=== PATIENT | female | born 1990 | race Hispanic/Latino ===

== ENCOUNTER 2021-04-25 16:48 | Emergency (ER) | payer OTHER ==
[~2021-04-25] VITALS: Ht 170.2 cm; Wt 89.1 kg
[2021-04-25] MEDS ORDERED: NUVAMIS2 PV (16:54)
[2021-04-25] MEDS ORDERED: LORA-622 PO (16:54)
[2021-04-25 18:59] LABS: HEMATOCRIT 39.5 % (36.0-47.0); HEMOGLOBIN 12.8 g/dl (12.0-15.5); MEAN CORPUSCULAR HEMOGLOBIN 30.1 pg (27.0-33.0); MEAN CORPUSCULAR HGB CONC 32.4 g/dl (32.0-36.5); MEAN CORPUSCULAR VOLUME 92.9 fl (80.0-96.0); PLATELET COUNT, AUTOMATED 271 10^3/uL (150-450); RED BLOOD COUNT 4.25 10^6/uL (4.00-5.40); WHITE BLOOD COUNT 7.5 10^3/uL (4.0-10.0)
--- NOTE | 2021-04-25 21:33 | REPVR ---
PROCEDURE INFORMATION: Exam: US First Trimester, Transabdominal Exam date and time: 04/25/2021 8:05 PM Age: 30 years old Clinical indication: Lmp or gestational age (in weeks): 5 w 5 d; Antepartum complications; Bleeding; ; Additional info: Bleeding 6 weeks TECHNIQUE: Imaging protocol: Real-time transabdominal obstetrical ultrasound of the maternal pelvis and a first trimester , less than 14 weeks 0 days, with image documentation. COMPARISON: No relevant prior studies available. FINDINGS: Gestation: Mean gestational sac measures 11 mm corresponding to 5 weeks and 5 days gestation. pole not visualized. Yolk sac not visualized. Bilateral ovaries not visualized due to overlying bowel gas. Uterus: Uterus measures 10.1 x 6.2 x 7.0 cm. space: No intraperitoneal free fluid. IMPRESSION: Limited study. Intrauterine gestation sac corresponding to 5 weeks and 5 days gestation. No pole or yolk sac identified. Findings may be secondary to early gestation versus nonviable . Continued follow-up is suggested. Electronically signed by: Lionel Harrison On 04/25/2021 21:32:57 PM
[2021-04-25 22:20] VITALS: BP 124/70
== END 2021-04-25 22:26 | disposition home or self-care (01) ==
LOC: M ED 16:48
DX: O46.91 Antepartum hemorrhage, unspecified, first trimester (principal); Z88.6 Allergy status to analgesic agent; Z88.8 Allergy status to other drugs, medicaments and biological substances; Z91.040 Latex allergy status; Z3A.01 Less than 8 weeks gestation of pregnancy

== ENCOUNTER 2021-05-12 06:38 | Emergency (ER) | payer OTHER ==
[~2021-05-12] VITALS: Ht 170.2 cm; Wt 87.7 kg
[~2021-05-12 06:38] MED LIST: LORA-622 PO; NUVAMIS2 PV
[2021-05-12] MEDS ORDERED: METOCLOPRAMIDE INJ 10MG/2ML VIAL (J2765 PER 1) IV ONE (08:30)
[2021-05-12] MEDS ORDERED: ACETAMINOPHEN 325 MG TAB PO ONE (08:30)
[2021-05-12] MEDS ORDERED: NS 1,000 ML IV ONE (08:30)
--- NOTE | 2021-05-12 09:02 | REP ---
INDICATION: bleeding. COMPARISON: Comparison sonography 25 April 2021. TECHNIQUE: Transabdominal obstetric sonography. FINDINGS: Scanning demonstrates a single living intrauterine gestation in a free-floating lie. The crown-rump length of the embryonic pole is 2.0 cm. This corresponds with a gestational age estimate of a yolk sac is visualized. No complication is seen. No extra uterine abnormality. 8 weeks 4 days. heart rate is recorded at 167 beats per minute. IMPRESSION: Single living intrauterine gestation at 8 weeks 4 days by today's crown-rump length. WARREN by today's sonography December 18, 2021. No complication seen. <Electronically signed by Fernando Gee > 05/12/21 0870
[2021-05-12 09:14] LABS: BASO % 0.2 % (0.0-1.0); EOS # 0.1 10^3/uL (0.0-0.5); EOS % 2.4 % (0.0-3.0); HEMATOCRIT 37.9 % (36.0-47.0); HEMOGLOBIN 12.3 g/dl (12.0-15.5); LYMPH % 35.6 % (24.0-44.0); MEAN CORPUSCULAR HEMOGLOBIN 29.9 pg (27.0-33.0); MEAN CORPUSCULAR HGB CONC 32.5 g/dl (32.0-36.5); MONO # 0.3 10^3/uL (0.0-0.8); MONO % 4.7 % (2.0-8.0); NEUTROPHILS # 3.3 10^3/uL (1.5-8.5); NEUTROPHILS % 56.9 % (36.0-66.0); PLATELET COUNT, AUTOMATED 253 10^3/uL (150-450); RED BLOOD COUNT 4.12 10^6/uL (4.00-5.40); WHITE BLOOD COUNT 5.7 10^3/uL (4.0-10.0)
--- OUTSIDE RECORDS SUMMARY | 2021-05-12 10:01 | CCD | Continuity of Care Document ---
Author Author Cortney ENGLE M.D. Organization Unknown Address [address], [place] [address] Phone [phone] Care Team Providers Care Staff Physician Name Role Phone Edwar Tatum MD [facility] [phone] Problems Active Problems Provider Date Cow's milk protein-induced anaphylaxis Rylan Engle M.D. 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 Onset: 03/27/2021 Anaphylaxis due to shellfish Rylan Engle M.D. Onset : 03/27/2021 Social History Type Date Description Comments Sex Unknown Tobacco Use Reviewed: 03/27/21 Patient has never smoked Smoking Status Reviewed: 03/27/21 Patient has never smoked Allergies and adverse reactions Active Allergies Criticality Reaction | Severity Comments Date Latex Unable to assess criticality Difficulty breathing, Difficulty swallowing, Hives, Itching 03/27/2021 NSAIDS Unable to assess criticality Difficulty breathing, Difficulty swallowing, Hives 03/27/2021 Medications Active Medications SIG Qnty Indications Ordering Provide r Date Diphenhydramine HCL 25mg Tablets take 1-2 tablets (25-50 mg) by oral route every 4-6 hours as needed Unknown Nuvaring 0.12-0.015mg/24HR Ring Insert ring every 4 weeks Unknown Epinephrine 0.3mg/0. 3ML Solution Auto-Inject inject intramuscularly once as needed for anaphylaxis Unknown Immunizations Description No Information Available Vital Signs Date Vital Result Comment 03/27/2021 8:29am Weight 202.50 lb Height 66.75 inches 5'6.75" Heart Rate 73 /min Respiratory Rate 16 /min BP Systolic 128 mmHg BP Diastolic 87 mmHg BMI (Body Mass Index) 32.0 kg/m2 Results Description No Information Available Procedures Date Code Description Status 03/27/2021 39241 Office/Outpatient New Moderate M DM 45-59 Minutes Completed 03/27/2021 95805 Allergy Testing Any Combination Of Percutaneous W/Drugs Completed 03/27/2021 10000 Allergy Tests Percutaneous W/ Al lergenic Extracts Completed Medical Devices Description No Information Available Encounters Type Date Location Provider Dx Diagnosis Office Visit 03/27/2021 8:30a Main Office Rylan Engle M.D. T78.3xxA Angioneurotic edema, initial encounter L50.9 Urticaria, unspecified T50.Z95A Adverse effect of vaccines a nd biological substances, init T78.07xA Anaphylactic reaction due to milk and dairy products, init T78.02xA Anaphylactic reaction due to shellfish (crustaceans), init T78.05xA Anaphylactic reaction due to tree nuts and seeds, init Assessments Date Code Description Provider 03/27/2021 T78.3xxA Angioneurotic edema, initial enc ounter Rylan Engle M.D. 03/27/2021 L50.9 Urticaria, unspecified Rylan leonard M.D. 03/27/2021 T50.Z95A Adverse effect of ot her vaccines and biological substances, initial encounter Rylan Engle M.D. 03/27/2021 T78.07xA Anaphylactic reactio n due to milk and dairy products, initial encounter Rylan Engle M.D. 03/27/2021 T78.02xA Anaphylactic reactio n due to shellfish (crustaceans), initial encounter Rylan Engle M.D. 03/27/2021 T78.05xA Anaphylactic reactio n due to tree nuts and seeds, initial encounter Rylan Engle M.D. Plan of Treatment 03/27/2021 - Rylan Engle M.D.* T78.3xxA Angioneurotic edema, initial encounter* Recommendations:* Skin test to PEG showed weak 2+ positive suggesting that her reactivity to Moderna vaccine could be related to PEG. As a result she should avoid exposure to Moderna vaccine, Pfizer vaccine or [place] vaccine (polysorbate-80 in [place] vaccine is closely cross-reactive with PEG). Because of the severity of her prior reaction I would suggest that this patient is not going to receive all mRNA COVID-19 vaccines. * L50.9 Urticaria, unspecified* Recommendations:* Skin test to PEG showed weak 2+ positive suggesting that her reactivity to Moderna vaccine could be related to PEG. As a result she should avoid exposure to Moderna vaccine, Pfizer vaccine or [place] vaccine (polysorbate-80 in [place] vaccine is closely cross- reactive with PEG). Because of the severity of her prior reaction I would suggest that this patient is not going to receive all mRNA COVID-19 vaccines. * T50.Z95A Adverse effect of other vaccines and biological substances, initial encounter* Recommendations:* Skin test to PEG showed weak 2+ positive suggesting that her reactivity to Moderna vaccine could be related to PEG. As a result she should avoid exposure to Moderna vaccine, Pfizer vaccine or [place] vaccine (polysorbate-80 in [place] vaccine is closely cross-reactive with PEG). Because of the severity of her prior reaction I would suggest that this patient is not going to receive all mRNA COVID-19 vaccines. * T78.07xA Anaphylactic reaction due to milk and dairy products, initial encounter* Recommendations:* Positive skin test suggests that this patient is still allergic to cow's milk/diary and that she would likely react with exposure to diary. Strict avoidance of all diary products is therefore necessary. I explained that it is imperative to read labels and cross check all foods in order to prevent reaction because of cross contamination. She should also keep EpiPen on hand at all times in case of accidental exposure and reaction. * T78.02xA Anaphylactic reaction due to shellfish (crustaceans), initial encounter* Recommendations:* Should avoid exposure to shellfish for the time being. If she ever decides to eat shellfish again I would need to cross check negative skin test with IgE RAST test to shellfish. Assuming that IgE RAST reconfirms negative skin test I would suggest to bring Ms. Lara back for oral challenge with shellfish at that time. Till that time she should avoid exposure to all shellfish and should keep EpiPen on hand at all times. * T78.05xA Anaphylactic reaction due to tree nuts and seeds, initial encounter* Recommendations:* Should avoid exposure to coconut for the time being. If she ever decides to eat coconut again I would need to cross check negative skin test with IgE RAST test to coconut. Assuming that IgE RAST reconfirms negative skin test I would suggest to bring Ms. Lara back for oral challenge with coconut at that time. Till that time she should avoid exposure to coconut. * All * Comments:* Of note, Mrs. Lara develop severe cough and nausea within 5 to 10 minutes after skin test was initiated. Cough and nausea resolved within 10 to 15 minutes after we explained to her that skin test was not not likely responsible. At that time I suggested that she should relax and try "not to talk herself into reaction". I explained that at times stress can be triggering some of the symptoms. When cough and nausea was already resolved we still gave her 1 tablet of Zyrtec to suppress "itching" (no objective rash, hives or swelling seen). She was discharged home 30 minutes after testing without any symptoms. At the time of the discharge she was still hoarse (same hoarseness as she presented to the clinic before testing was commenced). She reportedly developed that hoarseness few days back after having a republican with friends and excessive talking.Time spent:Rev iewing notes and labs from patient's PCP: 10 minutesFace to face discussion: 35 minutesDocumenting the visit: 10 minutes * Follow up:* As needed. Functional Status Description No Information Available Mental Status Description No Information Available Referrals Refer to Reason for Referral Status Appt Date Created
--- OUTSIDE RECORDS SUMMARY | 2021-05-12 10:01 | CCD | Continuity of Care Document ---
Author Author Cortney ENGLE M.D. Organization Unknown Address [address], [address], [place] [address] Phone [phone] Care Team Providers Care Sociology Adjunct Instructor Name Role Phone Edwar Tatum MD [facility] [phone] Problems Active Problems Provider Date Cow's milk [...] Available Procedures Date Code Description Status 03/27/2021 28998 Office/Outpatient New Moderate M DM 45-59 Minutes Completed 03/27/2021 47248 Allergy Testing Any Combination Of Percutaneous W/Drugs Completed 03/27/2021 60969 Allergy Tests Percutaneous W/ Al lergenic Extracts [...] exposure to Moderna vaccine, Pfizer vaccine or [place] vaccine (polysorbate-80 in [place] vaccine is closely [...] Pfizer vaccine or [place] vaccine (polysorbate-80 in [place] vaccine is closely cross- reactive with PEG). [...] Pfizer vaccine or [place] vaccine (polysorbate-80 in [place] vaccine is closely cross-reactive with PEG). Because [...] hoarseness few days back after having a green party with friends and excessive talking.Time spent:Rev iewing notes and labs from patient's PCP: 10 minutesFace to face discussion: 35 minutesDocumenting the visit: 10 minutes * Follow up:* As needed. Functional Status Description No Information Available Mental Status Description No Information Available Referrals Refer to Reason for Referral Status Appt Date Created
--- OUTSIDE RECORDS SUMMARY | 2021-05-12 10:02 | CCD ---
Author Author [facility] Organization [facility] Address Unknown Phone Unavailable Care Team Providers Care Shuttle Van Driver Name Role Phone Melvin FARMER Unavailable Unavailable DARIAN J VERO Unavailable Unavailable DARIAN J VERO Unavailable Unavailable DARIAN J VERO Unavailable Unavailable DARIAN J VERO Unavailable Unavailable DARIAN J VERO Unavailable Unavailable ISAUROKA J VERO Unavailable Unavailable DARIAN J VERO Unavailable Unavailable DARIAN J VERO Unavailable Unavailable DARIAN J VERO Unavailable Unavailable DARIAN J VERO Unavailable Unavailable DARIAN J VERO Unavailable Unavailable Jose Isaac MD Unavailable Unavailable Jose Isaac MD Unavailable Unavailable Jose Isaac MD Unavailable Unavailable Jose Isaac MD Unavailable Unavailable Jose Isaac MD Unavailable Unavailable Jose Isaac MD Unavailable Unavailable JUNG ENGLE MD Unavailable Unavailable JUNG ENGLE MD Unavailable Unavailable JUNG ENGLE MD Unavailable Unavailable JUNG ENGLE MD Unavailable Unavailable JUNG ENGLE MD Unavailable Unavailable JUNG ENGLE MD Unavailable Unavailable JUNG ENGLE MD Unavailable Unavailable JUNG ENGLE MD Unavailable Unavailable JUNG ENGLE MD Unavailable Unavailable JUNG ENGLE MD Unavailable Unavailable JUNG ENGLE MD Unavailable Unavailable JUNG ENGLE MD Unavailable Unavailable JUNG ENGLE MD Unavailable Unavailable JUNG ENGLE MD Unavailable Unavailable JUNG ENGLE MD Unavailable Unavailable JUNG ENGLE MD Unavailable Unavailable JUNG ENGLE MD Unavailable Unavailable JUNG ENGLE MD Unavailable Unavailable CHROSTOWSKI, JUNG MD Unavailable Unavailable CHROSTOWSKI, JUNG MD Unavailable Unavailable CHROSTOWSKI, JUNG MD Unavailable Unavailable CHROSTOWSKI, JUNG MD Unavailable Unavailable CHROSTOWSKI, JUNG MD Unavailable Unavailable CHROSTOWSKI, JUNG MD Unavailable Unavailable CHROSTOWSKI, JUNG MD Unavailable Unavailable CHROSTOWSKI, JUNG MD Unavailable Unavailable CHROSTOWSKI, JUNG MD Unavailable Unavailable CHROSTOWSKI, JUNG MD Unavailable Unavailable CHROSTOWSKI, JUNG MD Unavailable Unavailable CHROSTOWSKI, JUNG MD Unavailable Unavailable CHROSTOWSKI, JUNG MD Unavailable Unavailable CHROSTOWSKI, JUNG MD Unavailable Unavailable CHROSTOWSKI, JUNG MD Unavailable Unavailable CHROSTOWSKI, JUNG MD Unavailable Unavailable CHROSTOWSKI, JUNG MD Unavailable Unavailable CHROSTOWSKI, JUNG MD Unavailable Unavailable CHROSTOWSKI, JUNG MD Unavailable Unavailable CHROSTOWSKI, JUNG MD Unavailable Unavailable CHROSTOWSKI, JUNG MD Unavailable Unavailable [facility] Unavailable Unavailable Re-disclosure Warning The records that you are about to access may contain information from federally-assisted alcohol or drug abuse programs. If such information is present, then the following federally mandated warning applies: This information has been disclosed to you from records protected by federal confidentiality rules (42 CFR part 2). The federal rules prohibit you from making any further disclosure of this information unless further disclosure is expressly permitted by the written consent of the person to whom it pertains or as otherwise permitted by 42 CFR part 2. A general authorization for the release of medical or other information is NOT sufficient for this purpose. The Federal rules restrict any use of the information to criminally investigate or prosecute any alcohol or drug abuse patient.The records that you are about to access may contain highly sensitive health information, the redisclosure of which is protected by Article 27-F of the [facility] Public Health law. If you continue you may have access to information: Regarding HIV / AIDS; Provided by facilities licensed or operated by the [facility] Office of Mental Health; or Provided by the [facility] Office for People With Developmental Disabilities. If such information is present, then the following [facility] mandated warning applies: This information has been disclosed to you from confidential records which are protected by state law. State law prohibits you from making any further disclosure of this information without the specific written consent of the person to whom it pertains, or as otherwise permitted by law. Any unauthorized further disclosure in violation of state law may result in a fine or detention sentence or both. A general authorization for the release of medical or other information is NOT sufficient authorization for further disc losure. Encounters Encounter Providers Location Date Indications Data Source(s ) Emergency Attender: Jose Isaac MDConsultant: [facility] 04/22/2021 09:19:00 AM [facility] - 04/22/2021 11:41:00 AM [facility] ital Patient admitted. Outpatient Attender: VERO FARMERConsultant: [facility] 04/20/2021 03:01:59 PM [facility] Outpatient Attender: JUNG ENGLE MD Main Office 03/27/2021 08:30:00 AM EDT [facility] ([facility]) Medications No Information Insurance Providers Payer name Policy type / Coverage type Policy ID Covered green party ID Covered green party's relationship to aguayo Policy Aguayo Plan Information [facility] ACTIVE DUTY [id number] SP [id number] [facility] HUMANA - O/P [id number] 18 [id number] Problems, Conditions, and Diagnoses Code Display Name Description Problem Type Effective Dates Data Source(s) Z3A01 Less than 8 weeks gestation of Less than 8 weeks gestation of Diagnosis 04/22/2021 09:19:00 AM [facility] O200 Threatened Threatened Diagnosis 1 06/22/2020 09:19:00 AM [facility] O209 Hemorrhage in early , unspecifi ed Hemorrhage in early , unspecified Diagnosis 04/22/2021 09:19:00 AM [facility] 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 Anaphylaxis due to shellf andrei Problem 03/27/2021 12:00:00 AM EDT [facility] ([facility] ) 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 Anaphylaxis due to tree nu t Problem 03/27/2021 12:00:00 AM EDT [facility] ([facility] ) 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 ow's milk protein-induced anaphylaxis Problem 03/27/2021 12:00:00 AM EDT [facility] ([facility] Surgeries/Procedures Procedure Description Date Indications Data Source(s) PERCUTANEOUS TESTS W/ALLERGENIC EXTRACTS 03/27/2021 12 :00:00 AM EDT [facility] Allergy Testing Any Combination Of Percutaneous W/Drugs 03/27/2021 12:00:00 AM EDT [facility] ([facility]) OFFICE OUTPATIENT NEW 45 MINUTES 03/27/2021 12:00:00 A M EDT [facility] ([facility]) Results ID Date Data Source [id number] 04/24/2021 03:34:00 [place] [address] PHONE: [phone] FAX: [phone] Name .................. : TABITHA SWEENEY Acct Number.................. : [id number] ROOM. ................. : TR-04 MR Number ................... : [id number] Stay type ............. : E/R Discharge Date......... ... : 04/22/21 Admit Date ....... .. : 04/22/21 Admit Phys .................... : BELKIS Gale Date of ....... : 1990 Family Phys ................... : UNKNOWN Phone .................. : [phone] Age ................................ : 30 Film# .................. .:[id number] Sex ................................. : F Unsigned transcriptions are preliminary reports and do not represent a medical or legal document US OB 1ST TRI W TV IF NEEDED [id number] COMPLETE:04/22/21 10:58 KNB 17779 Reason(s): [place] 97477 COMPLETE:04/22/21 10:58 KNB 49133 Reason for Exam: Bleeding ULTRASOUND PELVIS INDICATION: patient with bleeding COMPARISON: None TECHNIQUE: Ultrasound of the pelvis is performed using initial transabdominal survey with inconclusive appearance followed by transvaginal technique. Preliminary report for this exam was provided by Jaelyn . FINDINGS: Uterus: Size 11.2 x 6.9 x 5.8 cm. Elongated intrauterine fluid 14 x 14 x 3 mm. Adjacent to this there is a rounded structure with an appearance more suggestive of gestational sac but with no confirmed pole or yolk sac measuring 5 mm. This would correspond to a 4 week 3 day based on size. Right ovary: 3.7 x 3.5 x 1.8 cm. No ovarian or adnexal masses. Doppler imaging shows blood flow to the ovary. Left Ovary: 3.5 x 3.4 x 2.1 cm. No ovarian or adnexal masses. Doppler imaging shows blood flow to the ovary. No free fluid. IMPRESSION: Small sac like structure possibly early gestation but not yet confirmable is IUP. Adjacent fluid could represent subchorionic hemorrhage. Consider short-term follow-up confirm normal developing and exclude ectopic. No specifically suggestive findings of ectopic . Page 1 of 2 [facility] [address] [place] [address] PHONE: [phone] FAX: [phone] Name .................. : TABITHA SWEENEY Acct Number.................. : [id number] ROOM. ................. : TR-04 MR Number ................... : [id number] Stay type ............. : E/R Discharge Date......... ... : 04/22/21 Admit Date ......... : 04/22/21 Admit Phys .................... : BELKIS Gale Date of ....... : 1990 Family Phys ................... : UNKNOWN Phone .................. : [phone] Age ................................ : 30 Film# .................. .:[id number] Sex ................................. : F Unsigned transcriptions are preliminary reports and do not represent a medical or legal document US OB 1ST TRI W TV IF NEEDED [id number] COMPLETE:04/22/21 10:58 [facility] 25377 Reason(s): [place] 41429 COMPLETE:04/22/21 10:58 [facility] 29490 Reason for Exam: Bleeding Electronically Reviewed and Signed By Kevin Mix MD , 04/24/21 15:34, SCB Transcribe Initials: JOSSELIN , Transcribe Date: 04/22/21 19:17, Dictation Date: Copy for: EMERGENCY DEPT via modem Copy for: 710 MED REC DISCHARGED Page 2 of 2 Name Value Range Interpretation Code Description Data Ny rce(s) Supporting Document(s) ID Date Data Source [id number] 04/24/2021 03:34:00 PM EST [facility] [address] [place] [address] PHONE: [phone] FAX: [phone] Name .................. : TABITHA SWEENEY Acct Number.................. : [id number] ROOM. ................. : TR-04 Number ................... : [id number] Stay type ............. : E/R Discharge Date......... ... : 04/22/21 Admit Date ....... .. : 04/22/21 Admit Phys .................... : BELKIS Gale Date of ....... : 1990 Family Phys ................... : UNKNOWN Phone .................. : [phone] Age ................................ : 30 Film# .................. .:[id number] Sex ................................. : F Unsigned transcriptions are preliminary reports and do not represent a medical or legal document US OB 1ST TRI W TV IF NEEDED 52406 COMPLETE:04/22/21 10:58 KNB 37233 Reason(s): bleeding [place]AGINAL U 10228 COMPLETE:04/22/21 10:58 KNB 02253 Reason for Exam: Bleeding ULTRASOUND PELVIS INDICATION: patient with bleeding COMPARISON: None TECHNIQUE: Ultrasound of the pelvis is performed using initial transabdominal survey with inconclusive appearance followed by transvaginal technique. Preliminary report for this exam was provided by Jaelyn . FINDINGS: Uterus: Size 11.2 x 6.9 x 5.8 cm. Elongated intrauterine fluid 14 x 14 x 3 mm. Adjacent to this there is a rounded structure with an appearance more suggestive of gestational sac but with no confirmed pole or yolk sac measuring 5 mm. This would correspond to a 4 week 3 day based on size. Right ovary: 3.7 x 3.5 x 1.8 cm. No ovarian or adnexal masses. Doppler imaging shows blood flow to the ovary. Left Ovary: 3.5 x 3.4 x 2.1 cm. No ovarian or adnexal masses. Doppler imaging shows blood flow to the ovary. No free fluid. IMPRESSION: Small sac like structure possibly early gestation but not yet confirmable is IUP. Adjacent fluid could represent subchorionic hemorrhage. Consider short-term follow-up confirm normal developing and exclude ectopic. No specifically suggestive findings of ectopic . Page 1 of 2 [facility] [address] [place] [address] PHONE: [phone] FAX: [phone] Name .................. : TABITHA SWEENEY Acct Number.................. : [id number] ROOM. ................. : TR-04 MR Number ................... : [id number] Stay type ............. : E/R Discharge Date......... ... : 04/22/21 Admit Date ......... : 04/22/21 Admit Phys .................... : BELKIS Gale Date of ....... : 1990 Family Phys ................... : UNKNOWN Phone .................. : [phone] Age ................................ : 30 Film# .................. .:[id number] Sex ................................. : F Unsigned transcriptions are preliminary reports and do not represent a medical or legal document US OB 1ST TRI W TV IF NEEDED [id number] COMPLETE:04/22/21 10:58 KNB 37108 Reason(s): bleeding [place]AL U 61014 COMPLETE:04/22/21 10:58 KNB 57602 Reason for Exam: Bleeding Electronically Reviewed and Signed By Kevin Mix MD , 04/24/21 15:34, SCB Transcribe Initials: DZ , Transcribe Date: 04/22/21 19:17, Dictation Date: Copy for: EMERGENCY DEPT via modem Copy for: 710 MED REC DISCHARGED Page 2 of 2 Name Value Range Interpretation Code Description Data Ny rce(s) Supporting Document(s) ID Date Data Source [id number] 04/22/2021 09:19:00 AM EST [facility] 1 OrderSheet [facility] Emergency Department [address] [place] [address] Phone #: ext- [phone] 04/22/2021 09:17 Patient: MEJIA LU Sex: F : 1990 Age: 30yWEIGHT:87.5 kg (S) HEIGHT:60 inches (S) BMI:29.8ALLERGIES: Ansaid, Aspirin, Covid, Diary, Egg, Iodine, MMR, Motrin, SHELLFISH, ZzofranCHIEF COMPLAINT: vag bleedingDIAGNOSIS: Threatened abortionLAB ORDERSOrder Description Priority Entered Acknowledged InitialedUrinalysis (Clean STAT 09:47 04/22/2021 09:47 TerryCatch) Jose Isaac ; Marcello CANOBeta-HCG, Qual STAT 09:47 04/22/2021 09:47 MikeyUrine Jose Isaac ; Marcello CANOBeta-HCG, Quant STAT 09:47 04/22/2021 09:47 MikeySerum Jose Isaac ; Marcello RNCBC w Diff STAT 09:47 04/22/2021 09:47 Jose Esqueda ; Marcello CANOType Rh STAT 09:47 04/22/2021 09:47 Jose Esqueda ; Marcello CANODIAGNOSTIC STUDY ORDERSOrder Description Priority Entered Acknowledged InitialedUS OB 1ST TRI W STAT 09:47 04/22/2021 09:47 TerryTV IF NEEDED Jose Isaac ; Marcello CANO(Oxygen?(No))( IV?(No)) Reason for Study: bleedingMEDICATION/IV/DRIP/FLUID ORDERSOrder Description Priority Entered Acknowledged InitialedGENERAL ORDERSOrder Description Priority Entered Acknowledged Initialed[Electronically signed by Anna Marie Vazquez RN (11:43 04/22/2021)][Electronically signed by Jose Isaac (11:44 04/22/2021)][Electronically locked by Anna Marie Vazquez RN (11:43 04/22/2021)] Name Value Range Interpretation Code Description Data Ny rce(s) Supporting Document(s) ID Date Data Source [id number] 04/22/2021 09:19:00 AM EST [facility] 1 Medication Reconciliation Report [facility] Emergency Department [address] [place] [address] Phone #: ext- [phone] 04/22/2021 09:17 Patient: MEJIA LU Sex: F : 1990 Age: 30yWeight: 87.5 kgHeight/Length: 60 in.BMI: 29.8ALLERGIES: Ansaid, Aspirin, Covid, Diary, Egg, Iodine, MMR, Motrin, SHELLFISH, ZzofranThe patient's Home Medications are listed below:NONE.The source(s) of the original Home Medication information:Not obtained.The following Medications were given to the patient in the Emergency Department:None.The following Medications were prescribed to the patient:None. Name Value Range Interpretation Code Description Data Ny rce(s) Supporting Document(s) ID Date Data Source [id number] 04/22/2021 09:19:00 AM [facility] 1 Medication Administration Record [facility] Emergency Department [address] [place] [address] Phone #: ext- [phone] 04/22/2021 09:17 Patient: MEJIA LU Sex: F : 1990 Age: 30yWeight: 87.5 kgHeight/Length: 67.5 inBMI: 29.8ALLERGIES: MMR, Covid, Egg, Diary, SHELLFISH, Iodine, Zzofran, Ansaid, Motrin, AspirinDate/Time Medication Administered Medication Ordered Name Value Range Interpretation Code Description Data Ny rce(s) Supporting Document(s) ID Date Data Source [id number] 04/22/2021 09:19:00 AM [facility] 1 General Instructions [facility] Emergency Department [address] [place] [address] Phone #: ext- [phone] 04/22/2021 09:17 Patient: MEJIA LU Sex: F : 1990 Age: 30yThreatened ; positive test in emergency department. Ultrasound was performed butcould not determine the location of the .INSTRUCTIONSWarnings: Further evaluation is necessary.GENERAL WARNINGS: Return or contact your physician immediately if your condition worsens orchanges unexpectedly, if not improving as expected, or if other problems arise.Understanding of the discharge instructions verbalized.Follow-up with: [facility] Respective Team [place], , , [address], , [place], [address] Follow up in two days even if well. Call for an appointment. ADDITIONAL INFORMATIONPossible Miscarriage (Threatened )You may be having a miscarriage.Common signs of a miscarriage are pain and bleeding. A small amount of bleeding can be normalduring the first 3 months of . Often the pain and bleeding stop, and you have a normalpregnancy and baby. But heavy bleeding or severe cramping can be an early sign of miscarriage. Amiscarriage means an unexpected loss of your .At this time, your healthcare provider doesn't know whether you will have a miscarriage, or if thingswill clear up and your will continue normally. This can be emotionally difficult. There is littlethat can be done to change the way you feel. But understand that miscarriages are common.About 1 or 2 out of every [address] Some even end before you know you are. This happens for a number of reasons, and usually the cause is never known. It's importantyou know that it is not your fault. It didn't happen because you did anything wrong.Having sex or exercising does not cause a miscarriage. These activities are usually safe unless youhave pain or bleeding or your healthcare provider tells you to stop. Even minor falls won't cause amiscarriage. Miscarriages happen because things were not developing as they were supposed to. Nomedicine can prevent a miscarriage. 2 General Instructions [facility] Emergency Department [address] [place] [address] Phone #: ext- [phone] 04/22/2021 09:17 Patient: MEJIA LU Sex: F : 1990 Age: 30yAgain, understand that things are uncertain right now. You may still have some bleeding. This may belight spotting or like a period, and you may pass some tissue. You may have some cramping. This iswhy follow-up care is important.Home careTo improve the chance of keeping your , you should take these steps: Rest in bed until the pain and bleeding stop. Don't have sex until your healthcare provider says it's OK. Use sanitary napkins instead of tampons. Don't douche. Don't take aspirin, ibuprofen, or naproxen. Don't have alcoholic or caffeinated beverages or smoke.Follow-up careMake an appointment with your healthcare provider within the next week, or as directed.If you had an ultrasound, a radiologist will review it. You will be told of any new findings that mayaffect your care.Call [phone] if you have: Severe pain and very heavy bleeding Severe lightheadedness, passing out, or fainting Rapid heart rate Trouble breathing Confusion or trouble waking upWhen to seek medical adviceCall your healthcare provider right away if any of these occur: Vaginal bleeding or pain that lasts for more than 3 days Heavy bleeding. This means soaking 1 new pad an hour over 3 hours. 3 General Instructions [facility] Emergency Department [address] [place] [address] Phone #: ext- [phone] 04/22/2021 09:17 Patient: MEJIA LU Sex: F : 1990 Age: 30y Fever of 100.4F (38C) or higher, or as directed by your healthcare provider Pain in your lower belly (abdomen) that gets worse Weakness or dizziness Passage of anything that resembles tissue. This would be pink or grayish membrane or solid material. Save the tissue in a clean container and bring it to your provider. [id number] [employer]. [address] [place] [address], [place] [address]. All rights reserved. This information is not intended as asubstitute for professional medical care. Always follow your healthcare professional's instructions. You have been given the following additional information: Possible Miscarriage (Threatened )(Electronically signed by Jose Isaac 04/22/2021 11:44) Name Value Range Interpretation Code Description Data Ny rce(s) Supporting Document(s) ID Date Data Source [id number] 04/22/2021 09:19:00 AM EST [facility] 1 Clinical Report - Nurses [facility] Emergency Department [address] [place] [address] Phone #: [phone] 04/22/2021 09:17 Patient: MEJIA LU Sex: F : 1990 Age: 30yTRIAGEArrived by private vehicle. Historian: patient. ( pt 4 weeks [ and 4 days ago passed largeblood clot than vaginal bleeding and cramping todAY still bleeding soaking pad every 2 hours).Triage time: 09:29 04/22/2021. Acuity: LEVEL 3.Chief Complaint: VAGINAL BLEED.Onset. (4 days ago). She has had cramping abdominal pain. She has had abnormal bleeding describedas heavier than normal period (1 pad Q2H). No spotting or hematuria.Treatment BRUSH STAINER:None.SEPSIS SCREEN: SIRS SCREEN NEGATIVE. SEPSIS SCREEN NEGATIVE. No suspected or confirmedsigns of infection present. (09:38 04/22/2021). --09:41 04/22/21 Felicianochristopher SrinivasanArmendariz, RN09:34 04/22/21. BP: 143/83. MAP: 103. HR: 89. RR: 16. O2 saturation: 100% on room air. Temp: 98.1 F(oral). Pain level now: 4/10. (cramping). --09:41 04/22/21 Feliciano Armendariz RN.Weight: 87.5 kg stated. Height/Length: 67.5 inches Per Patient. BMI: 29.8. --09:33 04/22/21 JEROME Watt.MedicationsNone. --09:39 04/22/21 Feliciano Armendariz RN.AllergiesAspirin. --09:39 04/22/21 Feliciano Armendariz RNMotrin. --09:39 04/22/21 Feliciano Armendariz RNAnsaid. --09:39 04/22/21 Feliciano Armendariz RNZzofran. --09:40 04/22/21 Feliciano Armendariz RNIodine. --09:40 04/22/21 DELMIS GuptaHELLFISH. --09:40 04/22/21 Feliciano Armendariz RNDiary. --09:40 04/22/21 Feliciano Armendariz RNEgg. --09:40 04/22/21 Feliciano Armendariz, RNCovid. --09:40 04/22/21 Feliciano Armendariz RNMMR. --09:40 04/22/21 Feliciano Armendariz RN.PROBLEMS:. --09:41 04/22/21 Feliciano Armendariz RN. 2 Clinical Report - Nurses [facility] Emergency Department [address] [place] [address] Phone #: ext- [phone] 04/22/2021 09:17 [id number] Sex[facility] F : 1990 Age: 30y ADDITIONAL SURGERIES: Left knee. --09:41 04/22/21 Feliciano Armendariz RN. History PAST MEDICAL HX: No history of diabetes mellitus or hypertension. No history of pelvic inflammatory disease, sexually transmitted disease or endometriosis. Currently : Mar 23 LNMP:. In 1st trimester. G 4. P 3. SOCIAL HX: Never smoker. No alcohol use or drug use. She was offered HIV testing but declined and hepatitis C testing but declined. She has not traveled outside the [place] Infectious disease exposure: No infectious disease exposure. SELF HARM ASSESSMENT: Self harm assessment was performed. The patient answered "no" to the question(s) "Have you recently felt down, depressed, or hopeless?", "Do you have thoughts of harming or killing yourself?", "Do you have a plan for harming or killing yourself?", "Have you recently had thoughts about harming or killing others?", "Do you have any dangerous items in your possession?", "Have you noticed less interest or pleasure in doing things?", "Are you here because you tried to hurt yourself?" and "Have you ever tried to hurt yourself before today?". ABUSE ASSESSMENT: Abuse history: reports abuse. (no). Abuse assessment. No suspicion of abuse. NUTRITIONAL RISK ASSESSMENT: The nutritional risk assessment revealed no deficiencies. FUNCTIONAL ASSESSMENT: Functional assessment: no impairments noted. LEARNING NEEDS ASSESSMENT: The learning needs assessment revealed no barriers. FALL RISK ASSESSMENT: Fall risk assessment completed. No risk factors identified. SKIN INTEGRITY ASSESSMENT: Skin integrity risk assessment completed. No skin integrity risk identified. --09:41 04/22/21 Feliciano Armendariz RN. FAMILY HX: No significant family medical history. --09:52 04/22/21 Jose Isaac. Interventions Identification and allergy band on patient. To room. --09:41 04/22/21 Feliciano Armendariz RN.PHYSICAL ASSESSMENTAmbulatory to room.GENERAL / NEURO / PSYCH: Alert. Oriented X 4. Appears in no acute distress.RESPIRATORY: Respirations not labored. Breath sounds within normal limits.CVS: Normal heart rate and rhythm. Capillary refill less than 2 seconds.GI / : Abdomen soft and nontender. Bowel sounds within normal limits. ( vag exam deferred to M D).SKIN: Skin is warm and dry. --09:43 04/22/21 Feliciano Armendariz RN. 3 Clinical Report - Nurses [facility] Emergency Department [address] [place] [address] Phone #: ext- [phone] 04/22/2021 09:17 Patient: MEJIA LU Sex: F : 1990 Age: 30yNURSING PROGRESS NOTESPatient gowned. Head of bed elevated 75 degrees. Two patient identifiers checked. Call light placed inreach. Bed placed in lowest position. Brakes of bed on. Patient ready for evaluation- ED physici annotified. --09:43 04/22/21 Feliciano Armendariz RN Checked patient name and birthdate: patient confirmed. Clean catch urine collected; sample sent to lab for urinalysis. Specimen labeled in the presence of the patient ([id number]). --09:48 04/22/21 Feliciano Armendariz RN Checked patient name and birthdate: patient confirmed. Blood samples drawn by tech. ([id number]). --09:55 04/22/21 Feliciano Armendariz RN Patient [facility] by wheelchair with mask and radiology transcriptionist. ([id number]). --10:30 04/22/21 Feliciano Armendariz RN Patient returned from sonogram by wheelchair with radiology transcriptionist. --10:46 04/22/21 [place] [facility] ER Tech1 10:46 04/22/21. BP: 135/86. HR: 76. RR: 16. O2 saturation: 100%. Temp: 98.2 F. --10:46 04/22/21 [facility], ER Tech1.DISPOSITION / DISCHARGE 11:35 04/22/21. BP: 125/81. HR: 79. RR: 16. O2 saturation: 100%. Temp: 97.9 F. Pain level now 4/10. --11:35 04/22/21 [place] [facility] ER Tech1 Departure time: 11:42 04/22/2021. --11:42 11/14/21 Anna Marie Vazquez RN Condition at departure: unchanged. No learning barriers present. Discharge instructions provided and reviewed with the patient. Reviewed referral to an corporate administrative assistant. Patient verbalized understanding. Written instructions provided in Urdu. The patient was discharged by the physician. She was discharged home and unaccompanied at time of discharge. She left ambulatory and via private vehicle. Patient driving. --11:42 04/22/21 Anna Marie Vazquez RN.Locked/Released at 04/22/2021 11:43 by Anna Marie Vazquez RN Name Value Range Interpretation Code Description Data Ny rce(s) Supporting Document(s) ID Date Data Source [id number] 04/22/2021 09:19:00 AM [facility] 1 Clinical Report - Physicians/Mid Levels [facility] Emergency Department [address] [place] [address] Phone #: ext- [phone] 04/22/2021 09:17 Patient: MEJIA LU Sex: F : 1990 Age: 30y Time Seen: 09:44 04/22/2021. Arrived- By private vehicle. Historian- patient.HISTORY OF PRESENT ILLNESS Chief Complaint: VAGINAL BLEEDING. This started 5 days and still present. It has been intermittent. The symptoms are described as moderate. Modifying factors. Not worsened by anything. The patient has had mild, intermittent, crampy pelvic pain and abnormal bleeding. No flank pain, pain with urination, urinary frequency or urgency of urination. Sexually active. (Last menses in early March was light and lasted only 2 days. Took a test a week ago and it was positive. No severe abdominal pain. She believes she's 5 weeks . No vomiting. ). Currently . Similar symptoms previously. Recent medical care: Not recently seen/assessed.REVIEW OF SYSTEMSNo nausea, vomiting, diarrhea, headache or fever. No anorexia, eye discomfort, cough, difficultybreathing or skin rash. No enlarged lymph nodes, fever, weight loss, diarrhea or nausea. No hematuria,headache or easy bruising. All other systems reviewed and are negative.PAST HISTORYSee nurses notes. No history of ectopic . Additional Surgeries: Left knee. Medications: None. Allergies: Ansaid. Aspirin. Covid. Diary. Egg. Iodine. MMR. Motrin. SHELLFISH. 2 Clinical Report - Physicians/Mid Levels [facility] Emergency Department [address] [place] [address] Phone #: ext- [phone] 04/22/2021 09:17 Patient: MEJIA LU Sex: F : 1990 Age: 30y Zzofran.SOCIAL HISTORYNever smoker. No alcohol use.FAMILY HISTORYNo significant family medical history.ADDITIONAL NOTESThe nursing notes have been reviewed.PHYSICAL EXAMVital Signs: 04/22/2021 09:34 BP: 143/83. MAP: 103. HR: 89. RR: 16. O2 saturation: 100% on room air.Temp: 98.1 F. Pain level now: 4/10.Appearance: Alert. Oriented X3. No acute distress.HEENT: Normal external inspection.ENT: Pharynx normal.Neck: Neck supple.CVS: Heart sounds normal.Respiratory: No respiratory distress. Breath sounds normal. Chest nontender.Abdomen: Soft and nontender. No organomegaly. No mass present. (Slight fullness in suprapubicregion).Back: Normal external inspection.Skin: Normal skin color. Normal skin turgor.Extremities: Extremities nontender. No lower extremity edema.Neuro: Oriented X 3. Mood/affect normal. No motor deficit.LABS, X-RAYS, AND EKGPelvic Sonogram: No free fluid. No intrauterine . 4-5 weeks gestational sac. The study wasinterpreted by the radiologist.Laboratory Tests: US OB TRANSVAG[place]AL [place]: (TIA: 04/22/2021 10:33) ( MsgRcvd 04/22/2021 10:58) In Progress US OB TRANSVAGINAL [place] Reason for Exam: Bleeding TRANSPORTATION: AMB IV? N O2? N STATUS: ISOLATION N Urinalysis: (TIA: 04/22/2021 09:21) ( MsgRcvd 04/22/2021 10:21) Final results Test Result Flag Units (Reference) URINALYSIS URINALYSIS SOURCE R COLOR yellow (NORMAL: Yello CLARITY clear (NORMAL: Clear SPEC GRAVITY 1.010 (1.001 - 1.030 3 Clinical Report - Physicians/Mid Levels [facility] Emergency Department [address] [place] [address] Phone #: ext- [phone] 04/22/2021 09:17 Patient: MEJIA LU Sex: F : 1990 Age: 30y pH 7 (5 - 9) GLUCOSE NORM (NORMAL: Negat BILIRUBIN NEG (NORMAL: Negat KETONE NEG (NORMAL: Negat PROTEIN NEG (NORMAL: Negat NITRITE NEG (NORMAL: Negat BLOOD 150 A (NORMAL: Negat LEUK EST 25 (NORMAL: Negat UROBILINOGEN NOR (less than 1.0 MICROSCOPIC See Below WBC 0 - 1 (NORMAL: NONE RBC 0 - 1 (NORMAL: NONE EPITHELIAL MODERATE A (NORMAL: NONE BACTERIA Trace (NORMAL: NONEBeta-HCG, Qual Urine: (TIA: 04/22/2021 09:21) ( MsgRcvd 04/22/2021 10:21) Final results Test Result Flag Units (Reference) HCG URINE QUAL POSITIVE (NORMAL: NEGAT HCG URINE QL REENTER POSITIVE (NORMAL: NEGAT { KIT LOT # [id number] ){ KIT EXP DATE07.09.22 ){ PROCEDURAL CONTROL VALID)Beta-HCG, Quant Serum: (TIA: 04/22/2021 09:57) ( MsgRcvd 04/22/2021 10:28) Final results Test Result Flag Units (Reference) HCG QUANT 2892.0 mIU/mL Interpretation: Less than 5 mU/mL: Negative6-10 mU/mL: Borderline (suggest repeat in 48 hours) >10: PositiveApprox HCG range (mU/mL) Weeks post LMP 5.4-708 mU/mL 3-4 Kjajh009-55601 mU/mL 5-6 Weeks 4059-408832 mU/mL 7-8 Rzesi77947-806902 mU/mL 9-10 Weeks 25853-25473 mU/mL 12-14 Avnns72183-82438 mU/mL 15-16 Weeks 8240-43711 mU/mL 17-18 WeeksCBC w Diff: (TIA: 04/22/2021 09:57) ( IdgRcvd 04/22/2021 10:21) Final results Test Result Flag Units (Reference) CBC W/AUTOMATED DIFF COMPLETE BLOOD COUNT WBC 5.3 10/uL (4.2 - 11.0) RBC 4.36 10/uL (4.20 - 5.40) HEMOGLOBIN 13.0 g/dL (12.0 - 16.0) HEMATOCRIT 40.1 % (37.0 - 47.0) MCV 92.0 fL (81.0 - 101) MCH 29.8 pg (27.0 - 34.0) MCHC 32.4 g/dL (31.0 - 36.0) RDW 12.8 % (11.5 - 14.5) PLATELETS 289 10/uL (150 - 450) MPV 8.6 fL (7.4 - 10.4) NEUT 59.3 % (37.0 - 80.0) LYMPH 27.6 % (25.0 - 40.0) MONO 5.3 % (3.0 - 8.0) EOS 7.0 % (0.0 - 7.0) BASO 0.6 % (0.0 - 2.5) %IG 0.2 H % (0.0 - 0.0) %NRBC 0.0 % (0.0 - 0.0) #NEUT 3.11 10/uL (2.00 - 6.90) #LYMPH 1.45 10/uL (0.60 - 3.40) 4 Clinical Report - Physicians/Mid Levels [facility] Emergency Department [address] [place] [address] Phone #: ext- [phone] 04/22/2021 09:17 Patient: MEJIA LU Sex: F : 1990 Age: 30y #MONO 0.28 10/uL (0.00 - 0.90) #EOS 0.37 10/uL (0.00 - 0.70) #BASO 0.03 10/uL (0.00 - 0.20) #IG 0.01 10/uL (0.00 - 0.10) #NRBC 0.00 10/uL (0.00 - 0.00) MANUAL DIFF NOT INDICATED RBC MORPH NOT INDICATED Type Rh: (TIA: 04/22/2021 09:57) ( MsgRcvd 04/22/2021 10:41) Final results Test Result Flag Units (Reference) ABO GROUP O RH TYPE POSITIVE { ABO/RH REENTER O POSITIVE US OB 1ST TRI W TV IF NEEDED: (TIA: 04/22/2021 09:47) ( Id gRcvd 04/22/2021 10:58) In Progress US OB 1ST TRI W TV IF NEEDED Reason(s): bleeding TRANSPORTATION: WC IV? IV?(No) O2? Oxygen?(No) Rachel.PROGRESS AND PROCEDURESCourse of Care: 09:53 04/22/21. No point tenderness on abdominal exam. Patient appears further alongin her than her predicted 5 weeks. 11:33 04/22/21. Benign abdominal exam. Despite the hcg over 2800, No IUP seen on ultrasound. Patient made aware of possibility of early miscarriage or remote possibility of ectopic . Patient/family counseled. Disposition: Discharged. Condition: stable.CLINICAL IMPRESSION Threatened ; positive test in emergency department. Ultrasound was performed but could not determine the location of the .INSTRUCTIONS Warnings: Further evaluation is necessary. GENERAL WARNINGS: Return or contact your physician immediately if your condition worsens or changes unexpectedly, if not improving as expected, or if other problems arise. Understanding of the discharge instructions verbalized. 5 Clinical Report - Physicians/Mid Levels [facility] Emergency Department [address] [place] [address] Phone #: ext- [phone] 04/22/2021 09:17 Patient: MEJIA LU Sex: F : 1990 Age: 30y [facility] Respective Team [address] [place], , , [address] [facility], , [place], [address] Follow up in two days even if well. Call for an appointment.(Electronically signed by Jose Isaac 04/22/2021 11:44) Name Value Range Interpretation Code Description Data Ny rce(s) Supporting Document(s) ID Date Data Source [id number] 04/22/2021 10:40:00 AM [facility] Name Value Range Interpretation Code Description Data Ny rce(s) Supporting Document(s) ABO group [Type] in Blood O [facility] Rh [Type] in Blood POSITIVE [facility] { ABO/RH REENTER O POSITIVE ID Date Data Source [id number] 04/22/2021 10:27:00 AM [facility] Name Value Range Interpretation Code Description Data Ny rce(s) Supporting Document(s) Choriogonadotropin.intact [Units/volume] in Serum or Plasma 2892.0 mI U/mL [facility] Interpr etation: Less than 5 mU/mL: Negative 6-10 mU/mL: Borderline (suggest repeat in 48 hours) >10: Positive Approx HCG range (mU/mL) Weeks post LMP 5.4-708 mU/mL 3-4 Weeks 217-27462 mU/mL 5-6 Weeks 4059-469795 mU/mL 7-8 Weeks 88747-822138 mU/mL 9-10 Weeks 43864-09256 mU/mL 12-14 Weeks 56218-93690 mU/mL 15-16 Weeks 8240- 31262 mU/mL 17-18 Weeks ID Date Data Source [id number] 04/22/2021 10:21:00 AM EST [facility] Name Value Range Interpretation Code Description Data Ny rce(s) Supporting Document(s) CBC W/AUTOMATED DIFF [facility] COMPLETE BLOOD COUNT Leukocytes [#/volume] in Blood by Automated count 5.3 10^3/uL 4.2 - 1 1.0 [facility] Erythrocytes [#/volume] in Blood by Automated count 4.36 10^6/uL 4. 20 - 5.40 [facility] Hemoglobin [Mass/volume] in Blood 13.0 g/dL 12.0 - 16.0 [facility] Hematocrit [Volume Fraction] of Blood by Automated count 40.1 % 3 7.0 - 47.0 [facility] Erythrocyte mean corpuscular volume [Entitic volume] by Auto mated count 92.0 fL 81.0 - 101 [facility] Erythrocyte mean corpuscular hemoglobin [Entitic mass] by Automated count 29.8 pg 27.0 - 34.0 [facility] Erythrocyte mean corpuscular hemoglobin concentration [Mass/volume] by Automated count 32.4 g/dL 31.0 - 36.0 [facility] Erythrocyte distribution width [Ratio] by Automated count 12.8 % 11.5 - 14.5 [facility] Platelets [#/volume] in Blood by Automated count 289 10^3/uL 150 - 45 0 [facility] Platelet mean volume [Entitic volume] in Blood by Automated count 8.6 fL 7.4 - 10.4 [facility] Neutrophils/100 leukocytes in Blood by Automated count 59.3 % 37. 0 - 80.0 [facility] Lymphocytes/100 leukocytes in Blood by Manual count 27.6 % 25.0 - 40.0 [facility] Monocytes/100 leukocytes in Blood by Automated count 5.3 % 3.0 - 8.0 [facility] Eosinophils/100 leukocytes in Blood by Automated count 7.0 % 0.0 - 7.0 [facility] Basophils/100 leukocytes in Blood by Automated count 0.6 % 0.0 - 2.5 [facility] %IG 0.2 % 0.0 - 0.0 H [facility] %NRBC 0.0 % 0.0 - 0.0 [facility] al Neutrophils [#/volume] in Blood by Automated count 3.11 10^3/uL 2.00 - 6.90 [facility] Lymphocytes [#/volume] in Blood by Automated count 1.45 10^3/uL 0.60 - 3.40 [facility] Monocytes [#/volume] in Blood by Automated count 0.28 10^3/uL 0.00 - 0.90 [facility] Eosinophils [#/volume] in Blood by Automated count 0.37 10^3/uL 0.00 - 0.70 [facility] Basophils [#/volume] in Blood by Automated count 0.03 10^3/uL 0.00 - 0.20 [facility] #IG 0.01 10^3/uL 0.00 - 0.10 [facility] #NRBC 0.00 10^3/uL 0.00 - 0.00 [facility] MANUAL DIFF NOT INDICATED [facility] RBC MORPH NOT INDICATED [facility] ID Date Data Source [id number] 04/22/2021 10:21:00 AM EST [facility] Name Value Range Interpretation Code Description Data Ny rce(s) Supporting Document(s) HCG URINE QUAL POSITIVE NORMAL: NEGATIVE [facility] HCG URINE QL REENTER POSITIVE NORMAL: NEGATIVE [facility] { KIT LOT # [id number] ){ KIT EXP DATE 07.09.22 ){ PROCEDURAL CONTROL VALID ) ID Date Data Source [id number] 04/22/2021 10:20:00 AM EST [facility] Name Value Range Interpretation Code Description Data Ny rce(s) Supporting Document(s) URINALYSIS [facility] URINALYSIS SOURCE R [facility] COLOR yellow NORMAL: Yellow [facility] CLARITY clear NORMAL: Clear [facility] Specific gravity of Urine by Test strip 1.010 1.001 - 1.030 [facility] pH 7 5 - 9 [facility] Glucose [Mass/volume] in Urine by Test strip NORM NORMAL: Negat [facility] Bilirubin.total [Presence] in Urine by Test strip NEG NORMAL: Negative [facility] Ketones [Presence] in Urine by Test strip NEG NORMAL: Negative [facility] Protein [Mass/volume] in Urine by Test strip NEG NORMAL: Negat [facility] Nitrite [Presence] in Urine by Test strip NEG NORMAL: Negative [facility] BLOOD 150 NORMAL: Negative [facility] LEUK EST 25 NORMAL: Negative [facility] Urobilinogen [Mass/volume] in Urine by Test strip NOR less maría elena n 1.0 mg/dL [facility] MICROSCOPIC See Below [facility] ital WBC 0 - 1 NORMAL: NONE SEEN [facility] Erythrocytes [#/volume] in Urine by Test strip 0 - 1 NORMAL: NON E SEEN [facility] EPITHELIAL MODERATE NORMAL: NONE SEEN [facility] Bacteria [Presence] in Urine sediment by Light microscopy Tr colin NORMAL: NONE SEEN [facility] ID Date Data Source [id number] 03/12/2021 10:20:00 AM EDT [facility] Name Value Range Interpretation Code Description Data Ny rce(s) Supporting Document(s) SARS coronavirus 2 RNA Not Detected [facility] [place] This lab was ordered by [facility] [employer] and reported by [facility]. Procedure Social History Code Duration Value Status Description Data Source(s ) Smoking 03/27/2021 12:00:00 AM EDT Patient has never smoked co mpleted Patient has never smoked [facility] ([facility] ) Vital Signs ID Date Data Source UNK Name Value Range Interpretation Code Description Data Source(s) Body height 66.75 [in_i] 66.75 [in_i] [facility] ([facility] 5'6.75" Body weight 202.50 [lb_av] 202.50 [lb_av] MEDEN T ([facility]) Heart rate 73 /min 73 /min [facility] ([facility]) Respiratory rate 16 /min 16 /min [facility] ( [facility]) Systolic blood pressure 128 mm[Hg] 128 mm[Hg] M EDENT ([facility]) Diastolic blood pressure 87 mm[Hg] 87 mm[Hg] [facility] ([facility]) Body mass index (BMI) [Ratio] 32.0 kg/m2 32.0 k g/m2 [facility] ([facility])
[2021-05-12 10:18] LABS: ALBUMIN 3.4 GM/DL (3.2-5.2); ALT/SGPT 20 U/L (12-78); BILIRUBIN,DIRECT 0.1 MG/DL (0.0-0.2); BILIRUBIN,TOTAL 0.5 MG/DL (0.2-1.0); BLOOD UREA NITROGEN 12 MG/DL (7-18); CALCIUM LEVEL 9.1 MG/DL (8.5-10.1); CARBON DIOXIDE LEVEL 26 MEQ/L (21-32); CHLORIDE LEVEL 106 MEQ/L (98-107); CREATININE FOR GFR 0.64 MG/DL (0.55-1.30); GLOMERULAR FILTRATION RATE > 60.0 (>60); GLUCOSE, FASTING 88 MG/DL (70-100); HCG, SERUM QUANTITATIVE 47875 MIU/ML; LIPASE 112 U/L (73-393); POTASSIUM SERUM 3.8 MEQ/L (3.5-5.1); SODIUM LEVEL 139 MEQ/L (136-145)
[2021-05-12] MEDS ORDERED: METR-265 PO (11:51)
[2021-05-12 12:05] VITALS: BP 121/67
[2021-05-12 12:17] LABS: GC DNA AMPLIFICATION NEGATIVE (NEGATIVE)
== END 2021-05-12 12:08 | disposition home or self-care (01) ==
LOC: M ED 06:38
DX: O46.90 Antepartum hemorrhage, unspecified, unspecified trimester (principal); O23.591 Infection of other part of genital tract in pregnancy, first trimester; Z3A.08 8 weeks gestation of pregnancy; Z88.6 Allergy status to analgesic agent; Z91.040 Latex allergy status; Z91.013 Allergy to seafood
CPT/HCPCS: 76801; 80053; 81001; 82248; 83690; 84702; 85025; 86850; 86900; 86901; 87210; 87661; 96361; 96374; 99284; J2765

== ENCOUNTER 2021-05-29 17:11 | Emergency (ER) | payer OTHER ==
[~2021-05-29] VITALS: Ht 172.7 cm; Wt 91.4 kg
[~2021-05-29 17:11] MED LIST changes: +METR-265 PO
[2021-05-29] MEDS ORDERED: TRAN1DIS4 TOP (17:21)
[2021-05-29] MEDS ORDERED: PYRI200T6 PO (17:21)
[2021-05-29] MEDS ORDERED: VITMTA PO (17:21)
[2021-05-29] MEDS ORDERED: NS 1,000 ML IV ONE ×2 (20:40→23:55)
[2021-05-29] MEDS ORDERED: METOCLOPRAMIDE INJ 10MG/2ML VIAL (J2765 PER 1) IV ONE (20:40)
[2021-05-29 20:54] LABS: BASO % 0.2 % (0.0-1.0); EOS # 0.3 10^3/uL (0.0-0.5); EOS % 3.9 % (0.0-3.0); HEMATOCRIT 36.8 % (36.0-47.0); HEMOGLOBIN 12.2 g/dl (12.0-15.5); LYMPH # 2.2 10^3/uL (1.5-5.0); LYMPH % 26.9 % (24.0-44.0); MEAN CORPUSCULAR HEMOGLOBIN 30.4 pg (27.0-33.0); MEAN CORPUSCULAR HGB CONC 33.2 g/dl (32.0-36.5); MEAN CORPUSCULAR VOLUME 91.8 fl (80.0-96.0); MONO # 0.4 10^3/uL (0.0-0.8); MONO % 4.4 % (2.0-8.0); NEUTROPHILS # 5.2 10^3/uL (1.5-8.5); NEUTROPHILS % 64.4 % (36.0-66.0); PLATELET COUNT, AUTOMATED 246 10^3/uL (150-450); RED BLOOD COUNT 4.01 10^6/uL (4.00-5.40)
[2021-05-29 21:33] LABS: ALBUMIN 3.5 GM/DL (3.2-5.2); ALT/SGPT 24 U/L (12-78); BILIRUBIN,DIRECT < 0.1 MG/DL (0.0-0.2); BILIRUBIN,TOTAL 0.3 MG/DL (0.2-1.0); BLOOD UREA NITROGEN 6 MG/DL (7-18); CARBON DIOXIDE LEVEL 27 MEQ/L (21-32); CHLORIDE LEVEL 105 MEQ/L (98-107); CREATININE FOR GFR 0.61 MG/DL (0.55-1.30); GLOMERULAR FILTRATION RATE > 60.0 (>60); GLUCOSE, FASTING 96 MG/DL (70-100); HCG, SERUM QUANTITATIVE 44773 MIU/ML; POTASSIUM SERUM 3.5 MEQ/L (3.5-5.1); SODIUM LEVEL 139 MEQ/L (136-145)
--- NOTE | 2021-05-29 22:25 | REPVR ---
PROCEDURE INFORMATION: Exam: US First Trimester, Transabdominal Exam date and time: 05/29/21 (8:51pm) Age: 31 years old Clinical indication: female (at approx. 10 weeks 6 days). Cramping, pain. TECHNIQUE: Imaging protocol: Real-time transabdominal obstetrical ultrasound of the maternal pelvis and a first trimester , less than 14 weeks 0 days, with image documentation. COMPARISON: US OB of 04/25/21 FINDINGS: The LMP is not provided. An early live intrauterine gestation is identified, approx. 10 weeks 6 days gestational age, based on the crown-rump length (CRL = 39.4 mm). Based on the CRL measurement, the WARREN = 12/19/21 Mean sac diameter (5.09 cm) corresponds to an expected age = 11 weeks 1 day. Appropriate interval growth is noted over the past 5 weeks. heart rate is recorded at 172 bpm. The uterus is anteverted. Probable small subchorionic hemorrhage (18 x 8 x 13 mm size), adjacent to the superior margin of the sac. No free pelvic fluid is appreciated. No solid adnexal mass. The cervix is closed, at 4.0 cm length. IMPRESSION: A single live IUP is seen, at 10 weeks 6 days gestational age (based on the CRL). heartbeat is recorded. Appropriate interval growth is observed over the past 5 weeks. No adnexal pathology. No free pelvic fluid is noted. Electronically signed by: Komal Mclean On 05/29/2021 22:25:10 PM
[2021-05-29] MEDS ORDERED: ACETAMINOPHEN TAB 650MG DOSE (2X325MG) PO ONE (22:35)
[2021-05-29 23:28] LABS: RSV AMPLIFICATION NEGATIVE (NEGATIVE)
[2021-05-29] MEDS ORDERED: FIORICET TAB PO ONE (23:55)
[2021-05-30 01:47] VITALS: BP 118/90
[2021-05-30] MEDS ORDERED: FIOR1CAP PO (01:50)
== END 2021-05-30 01:58 | disposition home or self-care (01) ==
LOC: M ED 17:11
DX: O99.511 Diseases of the respiratory system complicating pregnancy, first trimester (principal); J06.9 Acute upper respiratory infection, unspecified; R51.9 Headache, unspecified; Z88.6 Allergy status to analgesic agent; Z88.8 Allergy status to other drugs, medicaments and biological substances; Z91.040 Latex allergy status; Z91.013 Allergy to seafood; Z90.89 Acquired absence of other organs; Z3A.12 12 weeks gestation of pregnancy
CPT/HCPCS: 76801; 80048; 80076; 82375; 84702; 85025; 87631; 96361; 96374; 99284; J2765

== ENCOUNTER 2021-07-22 11:51 | Emergency (ER) | payer OTHER ==
[~2021-07-22] VITALS: Ht 170.2 cm; Wt 105.1 kg
[~2021-07-22 11:51] MED LIST changes: +FIOR1CAP PO; +PYRI200T6 PO; +TRAN1DIS4 TOP; +VITMTA PO
[2021-07-22 11:52] VITALS: BP 138/75
[2021-07-22] MEDS ORDERED: PRENTAB7 PO (12:01)
== END 2021-07-22 13:43 | disposition left against medical advice (07) ==
LOC: M ED 11:51
DX: Z53.21 Procedure and treatment not carried out due to patient leaving prior to being seen by health care provider (principal)

== ENCOUNTER → 2021-08-23 | Outpatient (CLI) | payer OTHER ==
[~2021-08-23] VITALS: Ht 171.4 cm; Wt 111.2 kg
[~2021-08-23] MED LIST changes: +PRENTAB7 PO
[2021-08-23 15:51] VITALS: BP 137/80
== END ==
LOC: M LDO 15:36
PROVIDERS: ATTEND Obstetrics & Gynecology
DX: O26.892 Other specified pregnancy related conditions, second trimester (principal); R10.2 Pelvic and perineal pain; Z3A.22 22 weeks gestation of pregnancy; Z91.040 Latex allergy status; Z88.6 Allergy status to analgesic agent; Z88.8 Allergy status to other drugs, medicaments and biological substances; Z91.013 Allergy to seafood
CPT/HCPCS: G0378; G0463

== ENCOUNTER 2021-10-15 16:17 | Outpatient (CLI) | payer OTHER ==
[~2021-10-15] VITALS: Ht 170.2 cm; Wt 117.4 kg
[2021-10-15 16:37] VITALS: BP 146/83
[2021-10-15] MEDS ORDERED: FIOR1CAP PO (16:48)
[2021-10-15] MEDS ORDERED: HOME MED LIST COMPLETE! XX SCH (16:50)
[2021-10-15] MEDS ORDERED: LR 1,000 ML IV ONE (16:55)
[2021-10-15] MEDS ORDERED: METOCLOPRAMIDE 10MG TAB PO ONE (16:55)
[2021-10-15] MEDS ORDERED: FIORICET TAB PO ONE (16:55)
[2021-10-15 17:23] VITALS: BP 141/77
[2021-10-15 17:37] LABS: HEMATOCRIT 31.2 % (36.0-47.0); HEMOGLOBIN 10.2 g/dl (12.0-15.5); MEAN CORPUSCULAR HEMOGLOBIN 30.2 pg (27.0-33.0); MEAN CORPUSCULAR HGB CONC 32.7 g/dl (32.0-36.5); MEAN CORPUSCULAR VOLUME 92.3 fl (80.0-96.0); PLATELET COUNT, AUTOMATED 236 10^3/uL (150-450); RED BLOOD COUNT 3.38 10^6/uL (4.00-5.40); WHITE BLOOD COUNT 8.7 10^3/uL (4.0-10.0)
[2021-10-15 17:54] VITALS: BP 139/86
[2021-10-15 18:02] LABS: ALT/SGPT 21 U/L (12-78); BILIRUBIN,TOTAL 0.2 MG/DL (0.2-1.0); GLOMERULAR FILTRATION RATE > 60.0 (>60); LDH LACTATE DEHYDROGENASE 198 U/L (84-246); URIC ACID 4.6 MG/DL (2.6-6.0)
[2021-10-15 18:15] LABS: TOTAL PROTEIN,RANDOM URINE 36.7 MG/DL (0.0-12.0)
[2021-10-15 18:23] VITALS: BP 149/71
[2021-10-15] MEDS ORDERED: FERR325T3 PO (18:33)
[2021-10-15] MEDS ORDERED: REGL5TAB2 PO (18:33)
== END 2021-10-15 18:55 | disposition home or self-care (01) ==
LOC: M LDO 16:17
PROVIDERS: ATTEND Obstetrics & Gynecology
DX: O10.013 Pre-existing essential hypertension complicating pregnancy, third trimester (principal); Z3A.30 30 weeks gestation of pregnancy; Z88.6 Allergy status to analgesic agent; Z91.040 Latex allergy status; Z91.012 Allergy to eggs; Z91.013 Allergy to seafood; Z88.8 Allergy status to other drugs, medicaments and biological substances; Z88.7 Allergy status to serum and vaccine
CPT/HCPCS: 59025; 82247; 82565; 82570; 83615; 84156; 84450; 84460; 84550; 85027; G0378; G0463

== ENCOUNTER 2021-10-16 11:13 | Outpatient (CLI) | payer OTHER ==
[~2021-10-16] VITALS: Ht 170.2 cm; Wt 116.3 kg
[~2021-10-16 11:13] MED LIST changes: +FERR325T3 PO; +REGL5TAB2 PO
[2021-10-16 13:10] LABS: HEMATOCRIT 30.3 % (36.0-47.0); HEMOGLOBIN 9.9 g/dl (12.0-15.5); MEAN CORPUSCULAR HEMOGLOBIN 30.2 pg (27.0-33.0); MEAN CORPUSCULAR HGB CONC 32.7 g/dl (32.0-36.5); MEAN CORPUSCULAR VOLUME 92.4 fl (80.0-96.0); PLATELET COUNT, AUTOMATED 216 10^3/uL (150-450); RED BLOOD COUNT 3.28 10^6/uL (4.00-5.40); WHITE BLOOD COUNT 8.2 10^3/uL (4.0-10.0)
[2021-10-16] MEDS ORDERED: FIORICET TAB PO ONE (13:25)
[2021-10-16 13:36] LABS: ALBUMIN 2.6 GM/DL (3.2-5.2); ALT/SGPT 20 U/L (12-78); BILIRUBIN,TOTAL 0.2 MG/DL (0.2-1.0); BLOOD UREA NITROGEN 7 MG/DL (7-18); CARBON DIOXIDE LEVEL 25 MEQ/L (21-32); CHLORIDE LEVEL 109 MEQ/L (98-107); GLOMERULAR FILTRATION RATE > 60.0 (>60); GLUCOSE, FASTING 97 MG/DL (70-100); POTASSIUM SERUM 3.7 MEQ/L (3.5-5.1); SODIUM LEVEL 141 MEQ/L (136-145)
[2021-10-16] MEDS ORDERED: METOCLOPRAMIDE 5 MG TAB PO ONE (14:00)
== END 2021-10-16 14:15 | disposition home or self-care (01) ==
LOC: M LDO 11:13
PROVIDERS: ATTEND Obstetrics & Gynecology
DX: O10.013 Pre-existing essential hypertension complicating pregnancy, third trimester (principal); Z3A.30 30 weeks gestation of pregnancy; O26.893 Other specified pregnancy related conditions, third trimester; R51.9 Headache, unspecified; O99.013 Anemia complicating pregnancy, third trimester; D64.9 Anemia, unspecified
CPT/HCPCS: 36415; 59025; 76815; 80053; 82570; 84156; 85027; G0378; G0463

== ENCOUNTER 2021-11-24 12:17 | Outpatient (CLI) | payer OTHER ==
[~2021-11-24] VITALS: Ht 172.7 cm; Wt 117.1 kg
[2021-11-24] MEDS ORDERED: HOME MED LIST COMPLETE! XX SCH (12:50)
[2021-11-24] MEDS ORDERED: ACETAMINOPHEN 500 MG TAB PO ONE (13:05)
[2021-11-24] MEDS ORDERED: METOCLOPRAMIDE 10MG TAB PO ONE (14:35)
[2021-11-24] MEDS ORDERED: diphenhydrAMINE 25MG CAP PO ONE (14:35)
[2021-11-24 14:49] LABS: APPEARANCE, URINE HAZY (CLEAR); BACTERIA, URINE AUTO NEGATIVE (NEGATIVE); BILIRUBIN, URINE AUTO NEGATIVE (NEGATIVE); BLOOD, URINE BLOOD NEGATIVE (NEGATIVE); COLOR, URINE YELLOW (YELLOW); GLUCOSE, URINE (UA) AUTO NEGATIVE (NEGATIVE); KETONE, URINE AUTO NEGATIVE (NEGATIVE); LEUKOCYTE ESTERASE, URINE AUTO NEGATIVE (NEGATIVE); MUCUS, URINE SMALL (NEGATIVE); NITRITE, URINE AUTO NEGATIVE (NEGATIVE); PROTEIN, URINE AUTO NEGATIVE (NEGATIVE); RBC, URINE AUTO 0 /HPF (0-3); SPECIFIC GRAVITY URINE AUTO 1.021 (1.002-1.035); SQUAMOUS EPITHELIAL CELL UR AU 0 /HPF (0-6); WBC, URINE AUTO 0 /HPF (0-3)
[2021-11-24] MEDS ORDERED: FLUCONAZOLE 50MG TABLET PO ONE (15:05)
[2021-11-24 15:34] LABS: HEMATOCRIT 30.5 % (36.0-47.0); HEMOGLOBIN 9.7 g/dl (12.0-15.5); MEAN CORPUSCULAR HGB CONC 31.8 g/dl (32.0-36.5); PLATELET COUNT, AUTOMATED 228 10^3/uL (150-450); RED BLOOD COUNT 3.35 10^6/uL (4.00-5.40); WHITE BLOOD COUNT 7.1 10^3/uL (4.0-10.0)
[2021-11-24 15:45] LABS: TOTAL PROTEIN,RANDOM URINE 32.1 MG/DL (0.0-12.0)
[2021-11-24 15:57] LABS: ALBUMIN 2.4 GM/DL (3.2-5.2); ALT/SGPT 16 U/L (12-78); BILIRUBIN,TOTAL 0.4 MG/DL (0.2-1.0); BLOOD UREA NITROGEN 6 MG/DL (7-18); CALCIUM LEVEL 8.7 MG/DL (8.5-10.1); CARBON DIOXIDE LEVEL 20 MEQ/L (21-32); CHLORIDE LEVEL 109 MEQ/L (98-107); CREATININE FOR GFR 0.61 MG/DL (0.55-1.30); GLOMERULAR FILTRATION RATE > 60.0 (>60); GLUCOSE, FASTING 98 MG/DL (70-100); LDH LACTATE DEHYDROGENASE 198 U/L (84-246); POTASSIUM SERUM 3.7 MEQ/L (3.5-5.1); SODIUM LEVEL 140 MEQ/L (136-145); TOTAL PROTEIN 5.9 GM/DL (6.4-8.2)
== END 2021-11-24 16:53 | disposition home or self-care (01) ==
LOC: M LDO 12:17
PROVIDERS: ATTEND Obstetrics & Gynecology
DX: O26.893 Other specified pregnancy related conditions, third trimester (principal); O10.013 Pre-existing essential hypertension complicating pregnancy, third trimester; Z3A.35 35 weeks gestation of pregnancy; R51.9 Headache, unspecified; Z87.59 Personal history of other complications of pregnancy, childbirth and the puerperium; Z88.6 Allergy status to analgesic agent; Z88.8 Allergy status to other drugs, medicaments and biological substances; Z91.040 Latex allergy status; Z88.7 Allergy status to serum and vaccine; Z91.013 Allergy to seafood
CPT/HCPCS: 36415; 59025; 80053; 81001; 82570; 83615; 84156; 85027; 87081; G0463

== ENCOUNTER 2021-12-08 20:47 | Outpatient (CLI) | payer OTHER ==
[~2021-12-08] VITALS: Ht 170.2 cm; Wt 117.7 kg
[2021-12-08] MEDS ORDERED: ACET-897 PO (21:10)
[2021-12-08 21:16] VITALS: BP 127/64
[2021-12-08 22:39] LABS: HEMATOCRIT 30.5 % (36.0-47.0); HEMOGLOBIN 9.9 g/dl (12.0-15.5); MEAN CORPUSCULAR HEMOGLOBIN 29.1 pg (27.0-33.0); MEAN CORPUSCULAR HGB CONC 32.5 g/dl (32.0-36.5); MEAN CORPUSCULAR VOLUME 89.7 fl (80.0-96.0); PLATELET COUNT, AUTOMATED 224 10^3/uL (150-450); WHITE BLOOD COUNT 8.9 10^3/uL (4.0-10.0)
[2021-12-08 22:55] LABS: INR 1.01; PROTHROMBIN TIME 13.7 SECONDS (12.7-14.5)
[2021-12-08 22:56] LABS: APPEARANCE, URINE HAZY (CLEAR); BACTERIA, URINE AUTO 1+ (NEGATIVE); BILIRUBIN, URINE AUTO NEGATIVE (NEGATIVE); BLOOD, URINE BLOOD NEGATIVE (NEGATIVE); COLOR, URINE YELLOW (YELLOW); GLUCOSE, URINE (UA) AUTO NEGATIVE (NEGATIVE); KETONE, URINE AUTO 1+ mg/dL (NEGATIVE); LEUKOCYTE ESTERASE, URINE AUTO 3+ (NEGATIVE); MUCUS, URINE SMALL (NEGATIVE); NITRITE, URINE AUTO NEGATIVE (NEGATIVE); PROTEIN, URINE AUTO NEGATIVE (NEGATIVE); RBC, URINE AUTO 2 /HPF (0-3); SPECIFIC GRAVITY URINE AUTO 1.012 (1.002-1.035); SQUAMOUS EPITHELIAL CELL UR AU 3 /HPF (0-6); UROBILINOGEN, URINE AUTO 0.2 mg/dL (0.0-2.0); WBC, URINE AUTO 6 /HPF (0-3)
[2021-12-08 22:56] LABS: PARTIAL THROMBOPLASTIN TIME 31.9 SECONDS (25.9-37.0)
[2021-12-08 23:17] LABS: ALBUMIN 2.7 GM/DL (3.2-5.2); ALT/SGPT 17 U/L (12-78); BILIRUBIN,TOTAL 0.3 MG/DL (0.2-1.0); BLOOD UREA NITROGEN 6 MG/DL (7-18); CALCIUM LEVEL 8.9 MG/DL (8.5-10.1); CARBON DIOXIDE LEVEL 19 MEQ/L (21-32); CHLORIDE LEVEL 110 MEQ/L (98-107); CREATININE FOR GFR 0.54 MG/DL (0.55-1.30); GLOMERULAR FILTRATION RATE > 60.0 (>60); GLUCOSE, FASTING 92 MG/DL (70-100); POTASSIUM SERUM 3.8 MEQ/L (3.5-5.1); SODIUM LEVEL 140 MEQ/L (136-145); TOTAL PROTEIN 6.2 GM/DL (6.4-8.2)
[2021-12-08 23:41] VITALS: BP 158/84
[2021-12-08 23:54] VITALS: BP 136/66
[2021-12-09] MEDS ORDERED: FOSFOMYCIN TROMETHAMINE 3 GM POWDER PACKET (MONUROL) PO ONE
== END 2021-12-09 00:07 | disposition home or self-care (01) ==
LOC: EEVIPCON 20:47 → M LDO 20:47
PROVIDERS: ATTEND Obstetrics & Gynecology
DX: O47.1 False labor at or after 37 completed weeks of gestation (principal); O10.013 Pre-existing essential hypertension complicating pregnancy, third trimester; Z3A.37 37 weeks gestation of pregnancy; Z91.040 Latex allergy status; Z88.7 Allergy status to serum and vaccine; Z88.6 Allergy status to analgesic agent; Z91.018 Allergy to other foods; Z91.013 Allergy to seafood
CPT/HCPCS: 36415; 59025; 76815; 80053; 81001; 85027; 85384; 85610; 85730; G0463

== ENCOUNTER 2021-12-10 07:21 | Inpatient (IN) | payer OTHER ==
[~2021-12-10] VITALS: Ht 171.4 cm; Wt 118.1 kg
[2021-12-10] VITALS (14 sets, daily range): BP systolic 114–148; BP diastolic 65–95
[~2021-12-10 07:21] MED LIST changes: +ACET-897 PO
[2021-12-10] MEDS ORDERED: HOME MED LIST COMPLETE! XX SCH (07:45)
[2021-12-10] MEDS ORDERED: TRANEXAMIC ACID INJection 1,000 MG in NS 100 ML IV PRN (08:30)
[2021-12-10] MEDS ORDERED: LACTATED RINGER'S 1000 ML IV ONE (08:30)
[2021-12-10] MEDS ORDERED: OXYTOCIN DRIP 30 UNITS in IV 1 EA IV PRN (08:30)
[2021-12-10] MEDS ORDERED: OXYTOCIN INJ 10 UNITS/ML VIAL (J2590) IV PRN (08:30)
[2021-12-10 08:59] LABS: HEMATOCRIT 29.7 % (36.0-47.0); HEMOGLOBIN 9.6 g/dl (12.0-15.5); MEAN CORPUSCULAR HEMOGLOBIN 29.2 pg (27.0-33.0); MEAN CORPUSCULAR HGB CONC 32.3 g/dl (32.0-36.5); MEAN CORPUSCULAR VOLUME 90.3 fl (80.0-96.0); PLATELET COUNT, AUTOMATED 241 10^3/uL (150-450); RED BLOOD COUNT 3.29 10^6/uL (4.00-5.40); WHITE BLOOD COUNT 6.8 10^3/uL (4.0-10.0)
[2021-12-10 09:17] LABS: TOTAL PROTEIN,RANDOM URINE 25.9 MG/DL (0.0-12.0)
[2021-12-10 09:18] LABS: ALT/SGPT 18 U/L (12-78); BILIRUBIN,TOTAL 0.2 MG/DL (0.2-1.0); CREATININE FOR GFR 0.76 MG/DL (0.55-1.30); GLOMERULAR FILTRATION RATE > 60.0 (>60); LDH LACTATE DEHYDROGENASE 176 U/L (84-246); URIC ACID 5.8 MG/DL (2.6-6.0)
[2021-12-10] MEDS ORDERED: miSOPROStol 50MCG 1/2 TABLET PO ONE ×2 (10:35→15:50)
[2021-12-10] MEDS: OXYTOCIN DRIP 30 UNITS in IV 1 EA IV PRN (21:13)
[2021-12-10] MEDS: LR 1,000 ML IV SCH (21:14)
[2021-12-10] MEDS ORDERED: OXYTOCIN DRIP 30 UNITS in IV 1 EA IV SCH (21:35)
[2021-12-11] VITALS (48 sets, daily range): BP systolic 95–162; BP diastolic 49–115
[2021-12-11] MEDS: LR 1,000 ML IV SCH ×3 (05:08→16:24)
[2021-12-11] MEDS ORDERED: FENTANYL 2MCG/ML ROPIVACAINE 0.2% IN 0.9% NACL 100ML IVBAG As Ordered ONE (07:40)
[2021-12-11] MEDS ORDERED: EPIDURAL/PCA KEYS XX PRN (10:25)
[2021-12-11] MEDS ORDERED: diphenhydrAMINE 50MG/ML VIAL (J1200) IV PRN (10:25)
[2021-12-11] MEDS ORDERED: ePHEDrine SULFATE 25 MG/5 ML(5MG/ML) SYRINGE IVP PRN (10:25)
[2021-12-11] MEDS ORDERED: LR 500 ML IV PRN (10:25)
[2021-12-11] MEDS ORDERED: NALOXONE INJ 0.4MG/1ML VIAL (J2310 PER 1MG) IV PRN (10:25)
[2021-12-11] MEDS: FENTANYL/ROPIVACAINE/NACL BAG 100 ML EPIDURAL SCH ×2 (10:32→15:56)
[2021-12-11 20:27] LABS: CORD GAS HCO3 V 21.6 MEQ/L; CORD GAS O2 SAT V 40.7 %; CORD GAS PCO2 V 45.4 mmHg; CORD GAS PH V 7.295 UNITS; CORD GAS PO2 V 18.4 mmHg; CORD GAS SBC V 18.9 MEQ/L
[2021-12-11 20:29] LABS: CORD GAS ABE A -7.2; CORD GAS HCO3 A 21.1 MEQ/L; CORD GAS O2 SAT A 45.7 %; CORD GAS PCO2 A 52.3 mmHg; CORD GAS PH A 7.223 UNITS; CORD GAS PO2 A 20.6 mmHg; CORD GAS SBC A 17.4 MEQ/L; CORD GAS TCO2 A 22.7 MEQ/L
[2021-12-11] MEDS: OXYTOCIN DRIP 30 UNITS in IV 1 EA IV PRN (21:04)
[2021-12-11] MEDS ORDERED: DOCUSATE SODIUM 100MG CAPSULE PO PRN (21:05)
[2021-12-11] MEDS ORDERED: LR 1,000 ML IV SCH (21:05)
[2021-12-11] MEDS ORDERED: DIBUCAINE 1% OINTMENT 30GM TOP PRN (21:05)
[2021-12-11] MEDS ORDERED: RHOGAM 300 MCG (1500 IU) INJ (J2790) IM SCH (21:05)
[2021-12-11] MEDS ORDERED: OXYTOCIN DRIP 30 UNITS in IV 1 EA IV SCH ×4 (21:05)
[2021-12-11] MEDS ORDERED: METOCLOPRAMIDE INJ 10MG/2ML VIAL (J2765 PER 1) IV PRN (21:05)
[2021-12-12] MEDS: ACETAMINOPHEN 500 MG TAB PO SCH ×4 (00:25→18:04)
[2021-12-12 05:53] VITALS: BP 145/73
[2021-12-12 07:29] LABS: HEMATOCRIT 28.4 % (36.0-47.0); HEMOGLOBIN 9.3 g/dl (12.0-15.5); MEAN CORPUSCULAR HEMOGLOBIN 28.8 pg (27.0-33.0); MEAN CORPUSCULAR HGB CONC 32.7 g/dl (32.0-36.5); MEAN CORPUSCULAR VOLUME 87.9 fl (80.0-96.0); PLATELET COUNT, AUTOMATED 220 10^3/uL (150-450); RED BLOOD COUNT 3.23 10^6/uL (4.00-5.40); WHITE BLOOD COUNT 12.9 10^3/uL (4.0-10.0)
[2021-12-12] MEDS: PRENATAL VITAMINS CHEWABLE TABLET PO SCH (08:23)
[2021-12-12] MEDS ORDERED: PRENATAL VITAMINS CHEWABLE TABLET PO SCH (09:00)
[2021-12-12 18:20] VITALS: BP 144/92
[2021-12-13] MEDS: ACETAMINOPHEN 500 MG TAB PO SCH ×4 (00:26→17:32)
[2021-12-13 06:00] VITALS: BP 140/74
[2021-12-13] MEDS: PRENATAL VITAMINS CHEWABLE TABLET PO SCH (08:09)
[2021-12-13] MEDS ORDERED: MEASLES,MUMPS,RUBELLA VACCINE INJ (MMR-II) (90707) SC.IMMUN ONE (09:00)
== END 2021-12-13 17:45 | disposition home or self-care (01) | DRG 807 ==
LOC: M LDO 07:21 → M LDI 09:39 → M OBS 12-11 22:44
PROVIDERS: ADMIT Obstetrics & Gynecology; ATTEND Obstetrics & Gynecology
PROC: 3E033VJ Introduction of Other Hormone into Peripheral Vein, Percutaneous Approach (ICD-10-PCS; 2021-12-10)
PROC: 3E0P7VZ Introduction of Hormone into Female Reproductive, Via Natural or Artificial Opening (ICD-10-PCS; 2021-12-10)
PROC: 10E0XZZ Delivery of Products of Conception, External Approach (ICD-10-PCS; principal; 2021-12-11)
DX: O10.92 Unspecified pre-existing hypertension complicating childbirth (principal); Z37.0 Single live birth; Z3A.39 39 weeks gestation of pregnancy; Z88.6 Allergy status to analgesic agent; Z91.013 Allergy to seafood; Z91.018 Allergy to other foods; Z91.012 Allergy to eggs; Z91.040 Latex allergy status; Z88.8 Allergy status to other drugs, medicaments and biological substances; Z88.7 Allergy status to serum and vaccine

== ENCOUNTER 2022-08-19 09:43 | Emergency (ER) | payer OTHER ==
[~2022-08-19] VITALS: Ht 172.7 cm; Wt 119.9 kg
[2022-08-19] MEDS ORDERED: AMOX250C3 PO (11:23)
[2022-08-19 13:03] VITALS: BP 162/103
== END 2022-08-19 13:04 | disposition home or self-care (01) ==
LOC: M ED 09:43
DX: J02.0 Streptococcal pharyngitis (principal); Z88.6 Allergy status to analgesic agent; Z88.8 Allergy status to other drugs, medicaments and biological substances; Z91.012 Allergy to eggs; Z91.013 Allergy to seafood; Z91.018 Allergy to other foods; Z79.2 Long term (current) use of antibiotics; Z79.1 Long term (current) use of non-steroidal anti-inflammatories (NSAID)

== ENCOUNTER 2022-09-14 20:12 | Inpatient (IN) | payer OTHER ==
[~2022-09-14] VITALS: Ht 172.7 cm; Wt 116.6 kg
[~2022-09-14 20:12] MED LIST changes: +AMOX250C3 PO
[2022-09-14] MEDS ORDERED: METOCLOPRAMIDE INJ 10MG/2ML VIAL IV ONE (21:20)
[2022-09-14] MEDS ORDERED: diphenhydrAMINE 50MG/ML VIAL IV STA (21:20)
[2022-09-14] MEDS ORDERED: NS 1,000 ML IV ONE (21:20)
[2022-09-14 22:08] LABS: BASO % 0.4 % (0.0-1.0); EOS # 0.1 10^3/uL (0.0-0.5); EOS % 3.1 % (0.0-3.0); HEMATOCRIT 39.5 % (36.0-47.0); HEMOGLOBIN 12.6 g/dl (12.0-15.5); LYMPH # 0.9 10^3/uL (1.5-5.0); LYMPH % 19.7 % (24.0-44.0); MEAN CORPUSCULAR HEMOGLOBIN 28.5 pg (27.0-33.0); MEAN CORPUSCULAR HGB CONC 31.9 g/dl (32.0-36.5); MEAN CORPUSCULAR VOLUME 89.4 fl (80.0-96.0); MONO # 0.4 10^3/uL (0.0-0.8); NEUTROPHILS # 3.1 10^3/uL (1.5-8.5); NEUTROPHILS % 68.6 % (36.0-66.0); PLATELET COUNT, AUTOMATED 251 10^3/uL (150-450); RED BLOOD COUNT 4.42 10^6/uL (4.00-5.40); WHITE BLOOD COUNT 4.5 10^3/uL (4.0-10.0)
[2022-09-14 22:20] LABS: D-DIMER QUANT 1492.89 ng/ml (<500)
[2022-09-14 22:33] LABS: BLOOD UREA NITROGEN 10 MG/DL (9-23); CALCIUM LEVEL 8.8 MG/DL (8.5-10.1); CARBON DIOXIDE LEVEL 23 MMOL/L (20-31); CHLORIDE LEVEL 103 MMOL/L (98-107); CREATININE FOR GFR 0.89 MG/DL (0.55-1.30); GLOMERULAR FILTRATION RATE > 60.0 (>60); GLUCOSE, FASTING 115 MG/DL (60-100); SODIUM LEVEL 135 MMOL/L (136-145)
[2022-09-14 22:51] LABS: INR 1.07; PROTHROMBIN TIME 14.1 SECONDS (12.5-14.5)
[2022-09-14 22:52] LABS: PARTIAL THROMBOPLASTIN TIME 34.9 SECONDS (24.8-34.2)
[2022-09-14 22:54] LABS: CK-MB VALUE MASS < 1.0 NG/ML (<3.6)
[2022-09-14 22:56] LABS: CPK CREATINE PHOSPHOKINASE 262 U/L (34-145); MB/CK RELATIVE INDEX 0.38 (< OR =4)
[2022-09-15] MEDS ORDERED: ACETAMINOPHEN 1000MG 100ML IV BAG IV ONE (01:20)
[2022-09-15] MEDS ORDERED: HOME MED LIST COMPLETE! XX SCH (01:50)
[2022-09-15] MEDS ORDERED: NIRMATRELVIR/RITONAVIR CO-PACK (EMERGENCY USE AUTH) PO SCH (02:00)
[2022-09-15] MEDS ORDERED: NS 1,000 ML IV SCH (02:00)
[2022-09-15] MEDS ORDERED: ENOXAPARIN 120MG/0.8ML SYRINGE SC ONE (03:00)
[2022-09-15 03:30] VITALS: BP 140/80
[2022-09-15] MEDS: NIRMATRELVIR/RITONAVIR CO-PACK (EMERGENCY USE AUTH) PO SCH ×2 (04:18→20:57)
[2022-09-15 05:30] VITALS: BP 137/82
[2022-09-15 07:03] LABS: BLOOD UREA NITROGEN 10 MG/DL (9-23); CALCIUM LEVEL 8.5 MG/DL (8.5-10.1); CARBON DIOXIDE LEVEL 24 MMOL/L (20-31); CHLORIDE LEVEL 104 MMOL/L (98-107); CREATININE FOR GFR 0.87 MG/DL (0.55-1.30); GLOMERULAR FILTRATION RATE > 60.0 (>60); GLUCOSE, FASTING 98 MG/DL (60-100); POTASSIUM SERUM 3.9 MMOL/L (3.5-5.1); SODIUM LEVEL 137 MMOL/L (136-145)
[2022-09-15] MEDS: ACETAMINOPHEN TAB 650MG DOSE (2X325MG) PO PRN ×2 (10:11→18:43)
[2022-09-15 14:00] VITALS: BP 136/82
[2022-09-15] MEDS: NS 1,000 ML IV SCH ×2 (15:55→23:55)
[2022-09-15 20:00] VITALS: BP 132/79
[2022-09-15] MEDS: ENOXAPARIN 40MG/0.4ML SYRINGE (J1650 PER 10MG) SC SCH (20:58)
[2022-09-16 05:03] VITALS: BP 142/89
[2022-09-16 06:04] LABS: BLOOD UREA NITROGEN 7 MG/DL (9-23); CALCIUM LEVEL 7.9 MG/DL (8.5-10.1); CARBON DIOXIDE LEVEL 25 MMOL/L (20-31); CHLORIDE LEVEL 108 MMOL/L (98-107); CREATININE FOR GFR 0.81 MG/DL (0.55-1.30); GLOMERULAR FILTRATION RATE > 60.0 (>60); GLUCOSE, FASTING 108 MG/DL (60-100); POTASSIUM SERUM 4.3 MMOL/L (3.5-5.1); SODIUM LEVEL 139 MMOL/L (136-145)
[2022-09-16] MEDS: NS 1,000 ML IV SCH (07:55)
[2022-09-16 08:00] VITALS: O2SAT 99
[2022-09-16] MEDS: NIRMATRELVIR/RITONAVIR CO-PACK (EMERGENCY USE AUTH) PO SCH (08:21)
[2022-09-16] MEDS: ENOXAPARIN 40MG/0.4ML SYRINGE (J1650 PER 10MG) SC SCH (08:21)
[2022-09-16] MEDS ORDERED: ELIQ5TAB PO (11:45)
[2022-09-16] MEDS ORDERED: NIRM1TAB PO (11:45)
[2022-09-16] MEDS ORDERED: ACET32TAB PO (11:49)
== END 2022-09-16 12:25 | disposition home or self-care (01) | DRG 179 ==
LOC: M ED 20:12 → M ED INP 09-15 01:58 → ENRESERV 09-15 03:02 → M MSPAV 09-15 03:29
PROVIDERS: ADMIT Internal Medicine; ATTEND Internal Medicine
DX: U07.1 COVID-19 (principal); Z91.012 Allergy to eggs; Z88.6 Allergy status to analgesic agent; Z88.8 Allergy status to other drugs, medicaments and biological substances; Z91.013 Allergy to seafood; Z91.018 Allergy to other foods; Z88.7 Allergy status to serum and vaccine; Z79.899 Other long term (current) drug therapy

== ENCOUNTER → 2022-09-19 | Outpatient (CLI) | payer OTHER ==
[~2022-09-19] MED LIST changes: +ACET32TAB PO; +ELIQ5TAB PO; +NIRM1TAB PO
== END ==
LOC: M RAD 06:50
PROVIDERS: ATTEND Internal Medicine
DX: I26.99 Other pulmonary embolism without acute cor pulmonale (principal); J12.82 Pneumonia due to coronavirus disease 2019
CPT/HCPCS: 71046; 78582; A9540; A9567

== ENCOUNTER → 2022-09-30 | Outpatient (CLI) | payer OTHER ==
[~2022-09-30] MED LIST changes: +ISOVUE-370 76% 100ML VIAL As Ordered ONE
== END ==
LOC: M RAD 07:05
PROVIDERS: ATTEND Internal Medicine
DX: R06.00 Dyspnea, unspecified (principal)
CPT/HCPCS: 71275; Q9967

== ENCOUNTER 2023-02-02 18:41 | Emergency (ER) | payer OTHER ==
[~2023-02-02] VITALS: Ht 172.7 cm; Wt 105.0 kg
[~2023-02-02 18:41] MED LIST changes: +ETON1VAG7 PV; -ISOVUE-370 76% 100ML VIAL As Ordered ONE; -NUVAMIS2 PV
[2023-02-02 18:47] VITALS: BP 188/96; TEMP 99.5; O2SAT 99
[2023-02-02] MEDS ORDERED: FLUORESCEIN OPHTH 1MG STRIP OD ONE (23:10)
[2023-02-02] MEDS ORDERED: TETRACAINE 0.5% OPHTH SOLN 4ML OD ONE (23:10)
[2023-02-02] MEDS ORDERED: ACETAMINOPHEN 500 MG TAB PO ONE (23:10)
[2023-02-02] MEDS ORDERED: methocarbamoL 500 MG TAB PO ONE (23:10)
[2023-02-02] MEDS ORDERED: POLYSOL OD (23:51)
[2023-02-02] MEDS ORDERED: METH-1164 PO (23:51)
[2023-02-02] MEDS ORDERED: POLYTRIM OPTH DROPS 10ML OD ONE (23:55)
== END 2023-02-02 23:57 | disposition home or self-care (01) ==
LOC: M ED 18:41 → EDBD 18:41 → M ED 23:57
DX: S43.401A Unspecified sprain of right shoulder joint, initial encounter (principal); S05.01XA Injury of conjunctiva and corneal abrasion without foreign body, right eye, initial encounter; V49.40XA Driver injured in collision with unspecified motor vehicles in traffic accident, initial encounter; Z88.6 Allergy status to analgesic agent; Z88.7 Allergy status to serum and vaccine; Z88.8 Allergy status to other drugs, medicaments and biological substances; Z91.012 Allergy to eggs; Z91.040 Latex allergy status; Z91.048 Other nonmedicinal substance allergy status

== ENCOUNTER → 2023-08-05 | Outpatient (CLI) | payer OTHER ==
[~2023-08-05] MED LIST changes: +METH-1164 PO; +POLYSOL OD
== END ==
LOC: M RAD 10:05
PROVIDERS: ATTEND Physician Assistant Medical
DX: N93.9 Abnormal uterine and vaginal bleeding, unspecified (principal)

== ENCOUNTER → 2023-08-25 | Outpatient (CLI) | payer OTHER | LOC: M LAB 08:29 | PROVIDERS: ATTEND Physician Assistant | DX: Z34.91 Encounter for supervision of normal pregnancy, unspecified, first trimester (principal) ==

== ENCOUNTER → 2023-08-27 | Outpatient (CLI) | payer OTHER | LOC: M LAB 08:15 | PROVIDERS: ATTEND Physician Assistant | DX: Z34.91 Encounter for supervision of normal pregnancy, unspecified, first trimester (principal) ==

== ENCOUNTER → 2023-08-29 | Outpatient (CLI) | payer OTHER | LOC: M LAB 14:11 | PROVIDERS: ATTEND Physician Assistant | DX: Z34.91 Encounter for supervision of normal pregnancy, unspecified, first trimester (principal) ==

== ENCOUNTER → 2023-09-01 | Outpatient (CLI) | payer OTHER | LOC: M LAB 08:52 | PROVIDERS: ATTEND Nurse Practitioner Family | DX: Z34.91 Encounter for supervision of normal pregnancy, unspecified, first trimester (principal) ==

== ENCOUNTER 2024-07-08 09:09 | Outpatient (CLI) | payer OTHER, SELFPAY ==
[~2024-07-08] VITALS: Ht 172.7 cm; Wt 90.0 kg
[2024-07-08] MEDS: NS (Normal Saline) 0.9% 1,000 ML IV SCH (09:00)
[~2024-07-08 09:09] MED LIST changes: +ALBUTEROL SULFATE 2.5MG/0.5ML INH NEB SOLN INH PRN; +EPINEPHrine INJ 1 MG/ML 1ML AMP IM PRN; +diphenhydrAMINE 50MG/ML VIAL IV PRN; +methylPREDNISolone 125MG 2ML VIAL IV PRN
[2024-07-08 09:15] VITALS: BP 138/80; O2SAT 99
[2024-07-08] MEDS: FERRIC CARBOXYMALTOSE 750 MG (VIAL MATE) IN 100ML NS IV ONE (09:20)
[2024-07-08 10:00] VITALS: BP 134/81; O2SAT 98
== END 2024-07-08 10:05 ==
LOC: M INFU 09:09
PROVIDERS: ATTEND Student in an Organized Health Care Education/Training Program
DX: D64.9 Anemia, unspecified (principal); Z88.6 Allergy status to analgesic agent; Z88.7 Allergy status to serum and vaccine; Z88.8 Allergy status to other drugs, medicaments and biological substances; Z91.013 Allergy to seafood; Z91.012 Allergy to eggs; Z91.018 Allergy to other foods; Z91.040 Latex allergy status
CPT/HCPCS: 96365; J1439

== ENCOUNTER 2024-07-15 09:00 | Outpatient (CLI) | payer OTHER ==
[~2024-07-15] VITALS: Ht 172.7 cm; Wt 90.0 kg
[~2024-07-15 09:00] MED LIST changes: +NS (Normal Saline) 0.9% 1,000 ML IV SCH
[2024-07-15 09:05] VITALS: BP 148/80; O2SAT 100
[2024-07-15] MEDS: FERRIC CARBOXYMALTOSE 750 MG (VIAL MATE) IN 100ML NS IV ONE (09:14)
[2024-07-15 09:55] VITALS: BP 145/83; O2SAT 100
== END 2024-07-15 09:55 | disposition home or self-care (01) ==
LOC: M INFU 09:00
PROVIDERS: ATTEND Student in an Organized Health Care Education/Training Program
DX: D64.9 Anemia, unspecified (principal); Z88.8 Allergy status to other drugs, medicaments and biological substances; Z91.040 Latex allergy status; Z91.018 Allergy to other foods; Z91.013 Allergy to seafood
CPT/HCPCS: 96365; J1439